=== PATIENT | female | born 1990 | race Caucasian/White ===

== ENCOUNTER 2020-04-15 11:53 | Observation (INO) | payer OTHER, SELFPAY ==
[2020-04-15] VITALS (75 sets, daily range): BP systolic 124–207; BP diastolic 76–132; PULSE 79–116; O2SAT 96–100; BMI 31.6
[2020-04-15 12:56] LABS: Basophils Absolute Auto 0.1 K/mm3 (0.0-0.1); Basophils Percent Auto 0.4 % (0.2-1.2); Eosinophils Absolute Auto 0.1 K/mm3 (0-0.3); Hemoglobin 14.9 g/dL (12.0-15.0); Immature Granulocyte Absolute 0.11 K/mm3 (0.00-0.031); Immature Platelet Fraction Pct 12.4 % (0.9-11.2); Lymphocytes Absolute Auto 1.52 K/mm3 (0.9-3.2); Lymphocytes Percent Auto 13.4 % (18.3-44.2); Mean Corpuscular HGB Conc 33.9 g/dl (32-36); Mean Corpuscular Hemoglobin 27.5 pg (26-34); Mean Corpuscular Volume 81.2 fl (80-100); Mean Platelet Volume 11.7 fl (7.4-10.4); Monocytes Absolute Auto 0.5 K/mm3 (0.1-0.6); Monocytes Percent Auto 4.2 % (2.6-8.5); Neutrophils Absolute Auto 9.1 K/mm3 (1.3-6.7); Platelet Count Result 154 k/mm3 (150-375); Red Blood Count 5.42 M/mm3 (4.2-5.4); Red Cell Distribution Width 14.5 % (11.5-14.5); White Blood Count 11.3 K/mm3 (4.5-10.0)
[2020-04-15 13:00] LABS: Add Urine Microscopic? YES; Appearance Urine Cloudy (Clear); Bacteria Urine Trace /hpf; Bilirubin Urine Negative (Negative); Blood Urine 1+ (Negative); Color Urine Yellow (Yellow); Creatinine Urine 83.6 mg/dL; Glucose Urine UA Negative (Negative); Ketones Urine Negative (Negative); Leukocyte Esterase Ur Trace LEU/UL (NEGATIVE); Mucus Urine Rare /lpf; Nitrate Urine Negative (Negative); Protein Urine 1+ mg/dL (Negative); RBC Urine 0-2 /hpf (0-2); Specific Grav Ur 1.013 (1.001-1.035); Squamous Epithelial Cell Urine Many /hpf (Few); Total Protein Urine Random 29 mg/dL; Ur Ttl Prot Creatinine Ratio 0.35 mg/mg (0-0.20); Urobilinogen Urine Negative mg/dL (<2.0)
[2020-04-15 13:04] LABS: Platelet Clumps Present; Platelet Estimate Adequate (Adequate)
[2020-04-15] MEDS: LABETALOL HCL INJ 100 MG/20 ML VIAL 20 MG IV PUSH (13:10)
--- NOTE | 2020-04-15 13:15 | OBADM ---
This patient, Roxana Ceron, admitted to the OB room OB Post 115 for observation. Patient/family oriented to hospital policies and general routines including ID bracelet, bed and alarms, visiting hours, pain management, procedures, bathroom and other care routines, personal items, smoking policy, room service/diet, and visiting hours. Patient/Family are encouraged to report perceived risks to care and to ask questions if they do not understand what they are told or what they should do.
[2020-04-15] MEDS: LABETALOL HCL INJ 100 MG/20 ML VIAL 40 MG IV PUSH (13:21)
[2020-04-15 13:23] LABS: Alanine Aminotransferase 21 U/L (4-35); Albumin Level 4.2 g/dL (3.5-5.1); Alkaline Phosphatase 82 U/L (38-126); Anion Gap 10 mmol/L (8-16); Aspartate Amino Transferase 24 U/L (14-36); Bilirubin,Total 0.5 mg/dL (0.2-1.3); Blood Urea Nitrogen 7 mg/dL (7-17); Calcium 9.6 mg/dL (8.4-10.2); Carbon Dioxide 21 mmol/L (22-30); Chloride 105 mmol/L (98-107); Estimated CRCL calculation 130 ml/min; Estimated Glomerular Filt Rate > 60; Glucose 102 mg/dL (65-105); Potassium 3.2 mmol/L (3.4-5.0); Sodium 136 mmol/L (137-145)
[2020-04-15] MEDS: LABETALOL HCL INJ 100 MG/20 ML VIAL 80 MG IV PUSH (13:32)
[2020-04-15 14:01] LABS: HIV 1/2 Ab P24 Ag Result Negative (Negative)
[2020-04-15 14:25] LABS: Hepatitis B Surface Antigen Negative (Negative); Rubella IgG Antibody 88.6 IU/ML
[2020-04-15] MEDS: LABETALOL HCL 100 MG TABLET 300 MG PO (16:15)
--- NOTE | 2020-04-15 21:49 | PM.IMHP ---
H&P: HPI History of Present Illness Date/Time: 04/15/20 21:49 The patient is a 30 yo currently 12w3d gestation who presented to the office for a routine visit. Initial BP measurement was 200s/130s. Repeat was 180s/110s and 160s/80s. Patient asymptomatic. Denies any headache, chest pain, SOB, N/V, visual disturbances, or abdominal pain. Patient was sent to L&D for further observation. BP also severely elevated upon arrival to L&D. IV antihypertensives were administered after which BP began to decrease. Decision made to admit patient for prolonged observation to ensure adequate BP control. Chief Complaint: Chronic hypertension Narrative: Roxana Ceron is a 30 year old female Review of Systems Review of Systems: All systems reviewed & are unremarkable except as noted in HPI and below Constitutional: Constitutional: Reports as per HPI, Reports no additional constitutional complaints, Denies chills, Denies fever(s), Denies headache(s) and Denies night sweats Eyes: Eyes: Reports as per HPI and Reports no additional eye complaints ENT: Reports system reviewed and no additional complaints, except as documented, Reports as per HPI, Reports Normal hearing present and Denies headache(s) Cardiovascular: Cardiovascular: Reports as per HPI, Reports no additional cardiovascular complaints, Denies chest pain and Denies dyspnea Respiratory: Respiratory: Reports as per HPI, Reports no additional respiratory complaints, Denies cough and Denies dyspnea Gastrointestinal: Gastrointestinal: Reports as per HPI, Reports no additional gastrointestinal complaints, Denies abdominal pain, Denies change in bowel habits, Denies change in stool character, Denies nausea and Denies vomiting Genitourinary: Genitourinary: Reports no additional female genitourinary complaints, Reports as per HPI, Denies abnormal vaginal bleeding, Denies genital lesions, Denies hot flashes, Denies dyspareunia, Denies pelvic pain, Denies sexual dysfunction, Denies urinary incontinence, Denies vaginal discharge, Denies vaginal dryness and Denies vaginal odor Musculoskeletal: Musculoskeletal: Reports no additional musculoskeletal complaints and Reports as per HPI Integumentary/Breasts: Skin/Breast: Reports system reviewed and no additional complaints, except as docu, Reports as per HPI, Denies breast pain and Denies nipple discharge Neurologic: Reports system reviewed and no additional complaints, except as documented, Reports as per HPI, Reports Normal hearing present and Denies headache(s) Psychiatric: Psychiatric: Reports no additional psychiatric complaints, Reports as per HPI, Denies anxiety and Denies depression Endocrine: Endocrine: Reports no additional endocrine complaints and Reports as per HPI Hematologic/Lymphatic: Hematologic/Lymphatic: Reports no additional hematologic/lymphatic complaints and Reports as per HPI Allergic/Immunologic: Allergic/Immunologic: Reports no additional allergic/immunologic complaints and Reports as per HPI PMFSH Past Medical History Medical History ASCUS favoring benign History of pre-eclampsia in prior , currently History of vaginal delivery x 1 2010 Surgical History Surgical History History of cholecystectomy 2015 Family History Family History Other Breast cancer Grandparent Diabetes mellitus Father Acute myocardial infarction Mother Hypertension Sibling Hypertension Social History Social History Smoking status: Never smoker Alcohol intake: never Substance use: never Meds Home Medications and Allergies Home Medications Medication Instructions Recorded Confirmed Type prenat.vits,uzma,[id number] 1 tablet PO DAILY 03/16/20 04/15/20 History Allergies
[2020-04-16] VITALS (15 sets, daily range): BP systolic 127–154; BP diastolic 87–105; PULSE 75–103; TEMP 36.6–36.9
[2020-04-16] MEDS: LABETALOL HCL 100 MG TABLET 300 MG PO (05:03)
--- NOTE | 2020-04-16 08:55 | PC.NURSE ---
Dr. Weir at bedside discussing plan of care with pt. New orders received to discharge pt home with 300mg Labetalol BID and follow up in the office next week Saturday or Saturday.
--- NOTE | 2020-04-16 09:16 | PM.OBPNVD ---
OB - PN: Subj Subjective Date/time seen: 04/16/20 09:16 Patient doing well this AM. Remains completely asymptomatic. Denies any headache, chest pain, SOB, N/V, visual disturbances, or abdominal pain. BP overnight was 120-150s/80-100s. No further severe BP elevations. Limited sono performed confirming +FHR 140s by M-mode Doppler. movement also visualized. Decision made to discharge patient home in stable condition. Will continue Labetalol 300mg BID. Rx for BP monitor sent to pharmacy. Patient instructed to take her BP at home BID and record measurements in log. Will f/u with patient in 2-3 days. Instructed to schedule an office visit within 1 week for BP check as well as to compare home BP cuff with office cuff. Strict emergency precautions reviewed. Advised to call office immediately for SBP >160 or DBP >110 or for any symptoms. Patient implied an understanding. All questions and concerns addressed. OB - PN: Obj Data Labs CBC & Chem 7: 04/15/20 12:34 04/15/20 12:34 Labs: Laboratory Results - last 24 hr 04/15/20 04/15/20 04/15/20 12:34 12:34 12:34 WBC 11.3 H RBC 5.42 H Hgb 14.9 Hct 44.0 MCV 81.2 MCH 27.5 MCHC 33.9 RDW 14.5 Plt Count 154 MPV 11.7 H Immature Gran % (Auto) 1.0 H Neut % (Auto) 80.0 H Lymph % (Auto) 13.4 L [place] % (Auto) 4.2 Eos % (Auto) 1.0 Baso % (Auto) 0.4 Lymph # (Auto) 1.52 Stanley # (Auto) 0.5 Eos # (Auto) 0.1 Baso # (Auto) 0.1 Abs Immat Gran (auto) 0.11 H Absolute Neuts (auto) 9.1 H Absolute Nucleated RBC 0.0 Nucleated RBC % 0.0 Platelet Estimate Adequate Clumped Platelets Present % Immature Plt Fraction 12.4 H Sodium 136 L Potassium 3.2 L Chloride 105 Carbon Dioxide 21 L Anion Gap 10 BUN 7 Creatinine 0.50 L Estim Creat Clear Calc 130 Estimated GFR > 60 Glucose 102 Uric Acid 4.0 Calcium 9.6 Total Bilirubin 0.5 AST 24 ALT 21 Alkaline Phosphatase 82 Total Protein 8.0 Albumin 4.2 Urine Color Yellow Urine Appearance Cloudy H Urine pH 7.0 Ur Specific [place] 1.013 Urine Protein 1+ H Urine Glucose (UA) Negative Urine Ketones Negative Ur Blood (Man) 1+ H Urine Nitrate Negative Urine Bilirubin Negative Urine Urobilinogen Negative Ur Leukocyte Esterase Trace H Urine RBC 0-2 Urine WBC 4-6 H Ur Squamous Epith Cells Many H Urine Bacteria Trace Urine Mucus Rare U Random Total Protein Urine Creatinine Protein/Creat Ratio 2 Hep Bs Antigen HIV 1&2 Ab/P24 Ag 4thGn Rubella IgG Antibody Blood Type Antibody Screen 04/15/20 04/15/20 04/15/20 12:34 12:34 12:34 WBC RBC Hgb Hct MCV MCH MCHC RDW Plt Count MPV Immature Gran % (Auto) Neut % (Auto) Lymph % (Auto) Stanley % (Auto) Eos % (Auto) Baso % (Auto) Lymph # (Auto) Stanley # (Auto) Eos # (Auto) Baso # (Auto) Abs Immat Gran (auto) Absolute Neuts (auto) Absolute Nucleated RBC Nucleated RBC % Platelet Estimate Clumped Platelets % Immature Plt Fraction Sodium Potassium Chloride Carbon Dioxide Anion Gap BUN Creatinine Estim Creat Clear Calc Estimated GFR Glucose Uric Acid Calcium Total Bilirubin AST ALT Alkaline Phosphatase Total Protein Albumin Urine Color Urine Appearance Urine pH Ur Specific [place] Urine Protein Urine Glucose (UA) Urine Ketones Ur Blood (Man) Urine Nitrate Urine Bilirubin Urine Urobilinogen Ur Leukocyte Esterase Urine RBC Urine WBC Ur Squamous Epith Cells Urine Bacteria Urine Mucus U Random Total Protein 29 Urine Creatinine 83.6 Protein/Creat Ratio 2 0.35 H Hep Bs Antigen Negative HIV 1&2 Ab/P24 Ag 4thGn Negative Rubella IgG Antibody 88.6 Blood Type Antibody Sc
--- NOTE | 2020-04-16 09:41 | PC.NURSE ---
Pt requested to stay until her 24 hour urine is finished[address] Dr. Weir approves of pt waiting to go home until after her 24 hour urine is finished.
[2020-04-16 13:27] LABS: Collection Time Urine 24 HOURS
[2020-04-16 14:05] LABS: Total Volume 24 Hour Urine 800 ml
[2020-04-16 14:11] LABS: Creatinine Clearance Urine 149.7 ml/min (75-125); Creatinine Urine 135.8 mg/dL; Patient Weight 167 Lbs; Total Protein Urine 24 Hr 96 MG/DAY (28-141); Total Protein Urine Random 12 mg/dL
[2020-04-18 11:01] LABS: Rapid Plasma Reagin Non-Reactive (NonReactive)
== END 2020-04-16 12:47 | disposition home or self-care (01) ==
PROVIDERS: Admitting Provider Student in an Organized Health Care Education/Training Program; Visit Provider Student in an Organized Health Care Education/Training Program
DX: O10.911 Unspecified pre-existing hypertension complicating pregnancy, first trimester (principal); Z3A.12 12 weeks gestation of pregnancy
CPT/HCPCS: 36415; 80053; 81001; 81050; 82570; 82575; 84156; 84550; 85025; 85055; 86592; 86703; 86762; 86850; 86900; 86901; 87086; 87340; 96374; A9270; G0378; G0379; G0432

== ENCOUNTER 2020-04-28 07:30 | Outpatient (CLI) | payer OTHER, SELFPAY ==
--- NOTE | ~2020-04-28 | US_ITS ---
EXAMINATION: US retroperitoneal duplex ltd DATE: 04/28/2020 08:12 INDICATION: Hypertension. Atherosclerosis of renal arteries. TECHNIQUE: Multiple grayscale, color Doppler, and pulsed Doppler images of the kidneys and renal lucita alfred were obtained. COMPARISON: None. FINDINGS: The aorta peak systolic velocity is 128 cm/s. The right renal artery peak systolic velocity is 72 cm/ s in the proximal segment, 99 cm/s in the mid segment, and 140 cm/s in the distal segment. The left r enal artery peak systolic velocity is 77 cm/s in the proximal segment, 128 cm/s in the mid segment, a nd 105 cm/s in the distal segment. IMPRESSION: 1. No Doppler evidence of renal artery stenosis. Reviewed, dictated and finalized at location B. EMATICAL STATISTICIAN
== END 2020-04-28 07:31 | disposition home or self-care (01) ==
PROVIDERS: Visit Provider Student in an Organized Health Care Education/Training Program
DX: I70.1 Atherosclerosis of renal artery (principal)
CPT/HCPCS: 93976

== ENCOUNTER 2020-05-11 07:46 | Outpatient (CLI) | payer OTHER, SELFPAY ==
--- NOTE | 2020-05-11 08:10 | ECG_ITS ---
Measurements Intervals [place] Rate: 70 P: 48 MO: 135 QRS: 11 QRSD: 88 T: 17 QT: 389 QTc: 421 Interpretive Statements SINUS RHYTHM WITH SINUS ARRHYTHMIA VOLTAGE CRITERIA FOR LVH BORDERLINE ST ABNORMALITY- ANTEROLAT/INF LEADS BASELINE ARTIFACT- I, III BORDERLINE ECG Electronically Signed On 05-11-2020 8:18:44 CDT by Ricardo Dover D.O.
== END 2020-05-11 07:47 | disposition home or self-care (01) ==
PROVIDERS: Visit Provider Student in an Organized Health Care Education/Training Program
DX: O10.919 Unspecified pre-existing hypertension complicating pregnancy, unspecified trimester (principal); Z3A.00 Weeks of gestation of pregnancy not specified; R94.31 Abnormal electrocardiogram [ECG] [EKG]
CPT/HCPCS: 93005

== ENCOUNTER 2020-06-07 08:17 | Outpatient (CLI) | payer OTHER, SELFPAY ==
--- NOTE | 2020-06-07 08:48 | ECHO_ITS ---
Patient Info Name: Roxana Ceron Age: 30 years : 1990 Gender: Female Ht: 61 in Wt: 160 lbs BSA: 1.79 m2 HR: 65 bpm BP: 141 / 98 mmHg Heart Rhythm: Sinus Rhythm Exam Date: 06/07/2020 9:02 AM Exam Location: [facility] Pulmonary Patient Status: Outpatient Admit Date: 06/07/2020 Staff Ordering Physician: Bonnie Weir MD Labor Conciliator: Olga Lidia Garrido RDCS Attending Provider: Bonnie Weir MD Exam Type: CA echo doppler color flow Study Info Indications O10.019 - Pre-existing essential hypertension complicating , unspecified trimester Complete two-dimensional, color flow and Doppler transthoracic echocardiogram is performed. Summary 1. Complete two-dimensional, color flow and Doppler transthoracic echocardiogram is performed. 2. Normal LV size and wall thickness, normal LV systolic and diastolic function, ejection fraction calculated at 60%. No significant valvular abnormalities. RVSP 30 mmHg. Sinus rhythm/sinus bradycardia during the study. Left Ventricle Left ventricular chamber dimension is normal. Left ventricular systolic function is normal, estimated at 60-65%. There is no increased left ventricular wall thickness. The left ventricular diastolic function is normal. Left Atria Left atrial chamber dimension is normal. Right Atria Right atrial chamber dimension is normal. Aortic Valve The aortic valve is normal. There is no aortic valve stenosis. Pulmonic Valve The pulmonic valve is normal. There is trace pulmonic regurgitation. Mitral Valve The mitral valve has normal leaflets. Tricuspid Valve The tricuspid valve leaflets are normal. There is trace tricuspid valve regurgitation. Pericardium/Pleural The pericardium appears epicardial fat pad. Aorta The aortic root size at the sinus of Valsalva is normal. Left Ventricular Outflow Tract Name Value Normal LVOT 2D LVOT Diameter 1.8 cm LVOT Doppler LVOT Peak Gradient 4 mmHg LVOT Mean Gradient 2 mmHg LVOT VTI 23 cm LVOT VTI/AV VTI Ratio 0.8 LVOT Stroke Volume 62 ml LVOT CO 4.2 l/min LVOT CI 2.4 l/min/m2 Pulmonic Valve Name Value Normal RVOT Doppler RVOT Peak Gradient 1 mmHg PV Doppler PV Peak Gradient 3 mmHg Mitral Valve Name Value Normal MV Doppler MV Peak Gradient 6 m
== END 2020-06-07 08:18 | disposition home or self-care (01) ==
PROVIDERS: Visit Provider Student in an Organized Health Care Education/Training Program
DX: O10.911 Unspecified pre-existing hypertension complicating pregnancy, first trimester (principal); Z3A.13 13 weeks gestation of pregnancy
CPT/HCPCS: 93306

== ENCOUNTER 2020-07-29 07:35 | Outpatient (CLI) | payer OTHER, SELFPAY ==
[2020-07-29 09:18] LABS: Glucose 1 Hour PP 50gm Dose 99 mg/dL
[2020-07-29 09:24] LABS: Basophils Absolute Auto 0.1 K/mm3 (0.0-0.1); Basophils Percent Auto 0.5 % (0.2-1.2); Eosinophils Absolute Auto 0.2 K/mm3 (0-0.3); Hematocrit 39.8 % (37.0-47.0); Immature Granulocyte Absolute 0.18 K/mm3 (0.00-0.031); Immature Granulocyte Percent A 1.6 % (0-0.5); Lymphocytes Percent Auto 12.1 % (18.3-44.2); Mean Corpuscular HGB Conc 32.7 g/dl (32-36); Mean Corpuscular Hemoglobin 28.1 pg (26-34); Mean Platelet Volume 10.8 fl (7.4-10.4); Monocytes Absolute Auto 0.6 K/mm3 (0.1-0.6); Monocytes Percent Auto 5.5 % (2.6-8.5); Neutrophils Percent Auto 78.3 % (45.5-73.1); Platelet Count Result 241 k/mm3 (150-375); Red Blood Count 4.63 M/mm3 (4.2-5.4); White Blood Count 11.5 K/mm3 (4.5-10.0)
[2020-07-29 09:42] LABS: Vitamin D 25 Hydroxy 20.7 ng/mL
[2020-07-29 10:14] LABS: Hepatitis C Virus Antibody Negative (Negative)
== END 2020-07-29 07:36 | disposition home or self-care (01) ==
PROVIDERS: Visit Provider Student in an Organized Health Care Education/Training Program
DX: O09.92 Supervision of high risk pregnancy, unspecified, second trimester (principal); Z3A.00 Weeks of gestation of pregnancy not specified
CPT/HCPCS: 36415; 82306; 82947; 84443; 85025; 86787; 86803

== ENCOUNTER 2020-08-15 13:54 | Outpatient (CLI) | payer OTHER, SELFPAY ==
[2020-08-15 14:30] VITALS: BP 121/82; PULSE 83
[2020-08-15 14:45] VITALS: BP 126/85; PULSE 81
[2020-08-15 15:15] VITALS: BP 125/88; PULSE 79
[2020-08-15 15:23] LABS: Basophils Absolute Auto 0.1 K/mm3 (0.0-0.1); Basophils Percent Auto 0.5 % (0.2-1.2); Eosinophils Absolute Auto 0.1 K/mm3 (0-0.3); Hemoglobin 13.5 g/dL (12.0-15.0); Immature Granulocyte Percent A 1.6 % (0-0.5); Lymphocytes Absolute Auto 1.46 K/mm3 (0.9-3.2); Lymphocytes Percent Auto 11.4 % (18.3-44.2); Mean Corpuscular HGB Conc 32.9 g/dl (32-36); Mean Corpuscular Hemoglobin 28.4 pg (26-34); Mean Corpuscular Volume 86.3 fl (80-100); Mean Platelet Volume 10.8 fl (7.4-10.4); Monocytes Absolute Auto 0.7 K/mm3 (0.1-0.6); Monocytes Percent Auto 5.5 % (2.6-8.5); Neutrophils Absolute Auto 10.2 K/mm3 (1.3-6.7); Platelet Count Result 216 k/mm3 (150-375); Red Blood Count 4.75 M/mm3 (4.2-5.4); Red Cell Distribution Width 13.6 % (11.5-14.5); White Blood Count 12.8 K/mm3 (4.5-10.0)
[2020-08-15 15:30] VITALS: BP 125/85; PULSE 79
[2020-08-15 15:32] LABS: Creatinine Urine 269.2 mg/dL; Total Protein Urine Random 65 mg/dL; Ur Ttl Prot Creatinine Ratio 0.24 mg/mg (0-0.20)
[2020-08-15 15:34] LABS: Alanine Aminotransferase 21 U/L (4-35); Albumin Level 4.3 g/dL (3.5-5.1); Alkaline Phosphatase 260 U/L (38-126); Anion Gap 11 mmol/L (8-16); Aspartate Amino Transferase 22 U/L (14-36); Bilirubin,Total 0.2 mg/dL (0.2-1.3); Blood Urea Nitrogen 12 mg/dL (7-17); Calcium 10.5 mg/dL (8.4-10.2); Carbon Dioxide 20 mmol/L (22-30); Chloride 105 mmol/L (98-107); Estimated Glomerular Filt Rate > 60; Glucose 105 mg/dL (65-105); Potassium 4.1 mmol/L (3.4-5.0); Sodium 136 mmol/L (137-145); Uric Acid 6.8 mg/dL (2.5-7.5)
[2020-08-15 15:38] LABS: Add Urine Microscopic? YES; Amorphous Sediment Urine Few; Appearance Urine Cloudy (Clear); Bacteria Urine Trace /hpf; Bilirubin Urine Negative (Negative); Blood Urine 1+ (Negative); Color Urine Amber (Yellow); Glucose Urine UA Negative (Negative); Ketones Urine Negative (Negative); Leukocyte Esterase Ur 2+ LEU/UL (NEGATIVE); Mucus Urine Few /lpf; Nitrate Urine Negative (Negative); Protein Urine 2+ mg/dL (Negative); Specific Grav Ur 1.024 (1.001-1.035); Squamous Epithelial Cell Urine Many /hpf (Few); Urobilinogen Urine Negative mg/dL (<2.0)
[2020-08-15 15:45] VITALS: BP 128/90; PULSE 78
[2020-08-15 16:00] VITALS: BP 122/84; PULSE 81
== END 2020-08-15 15:05 | disposition home or self-care (01) ==
LOC: ANHOBOP 13:59 → ANHLDR 14:01
PROVIDERS: Visit Provider Student in an Organized Health Care Education/Training Program
DX: O13.9 Gestational [pregnancy-induced] hypertension without significant proteinuria, unspecified trimester (principal); Z3A.00 Weeks of gestation of pregnancy not specified
CPT/HCPCS: 36415; 59025; 80053; 81001; 82570; 84156; 84550; 85025; 87086; 99199

== ENCOUNTER 2022-10-12 09:17 | Emergency (ER) | payer SELFPAY ==
[2022-10-12] VITALS (10 sets, daily range): BP systolic 110–132; BP diastolic 72–92; PULSE 84–97; RESP 10–97; TEMP 36.3; O2SAT 17–100
--- NOTE | 2022-10-12 09:37 | ECG_ITS ---
Measurements Intervals [place] Rate: 91 P: 46 NC: 148 QRS: -1 QRSD: 99 T: 231 QT: 381 QTc: 469 Interpretive Statements SINUS RHYTHM LEFT VENTRICULAR HYPERTROPHY AND ST-T CHANGE [VOLTAGE CRITERIA PLUS ST/T ABNORMALITY] ABNORMAL ECG COMPARED TO ECG 05/11/2020 08:17:27 NO SIGNIFICANT CHANGE Electronically Signed On 10-12-2022 15:59:55 CDT by Jovi Knapp M.D.
--- NOTE | 2022-10-12 09:57 | ED.NAVMDI ---
HPI - Nausea/Vomiting/Diarrhea General Chief complaint: Nausea/Vomiting/Diarrhea Stated complaint: heavy feeling in chest - i feel dehydrated Time Seen by Provider: 10/12/22 09:24 Source: patient, RN notes reviewed and old records reviewed Mode of arrival: ambulatory Limitations: no limitations History of Present Illness HPI Narrative: This is a 32 year old female who presents for evaluation of nausea, vomiting and diarrhea. Patient reports she developed nausea and vomiting on Saturday morning. She reports initially she had nonbilious emesis with food from Saturday night. She has continued to have nausea and dry heaves. She also reports watery diarrhea and her last episode was yesterday evening. She took Pepto Bismol yesterday afternoon. She denies abdominal pain, fever, or chills. She reports feeling dizzy with standing today and she reports her blood pressure was 90/63. She denies any sick contacts. She reports feeling upper chest heaviness this morning starting at 7 am and it has been constant, nonradiating. Related Data Home Medications Medication Instructions Recorded Confirmed prenat.vits,uzma,[id number] 1 tablet PO DAILY 03/16/20 04/15/20 Allergies Allergy/AdvReac Type Severity Reaction Status Date / Time morphine Allergy Itching Verified 10/12/22 09:18 Review of Systems Constitutional: Constitutional: Denies weakness Cardiovascular: Cardiovascular: Reports chest pain, Denies syncope, Denies rapid heart rate, Denies irregular heart rhythm, Denies leg edema and Denies dyspnea Respiratory: Respiratory: Denies chest congestion, Denies hemoptysis, Denies excessive phlegm production and Denies dyspnea Gastrointestinal: Gastrointestinal: Denies abdominal pain, Denies hematochezia, Reports diarrhea, Reports nausea and Reports vomiting Genitourinary: Genitourinary: Denies hematuria and Denies dysuria Musculoskeletal: Musculoskeletal: Denies joint swelling, Denies loss of height and Denies muscle weakness Neurologic: Reports dizziness, Denies syncope, Denies focal weakness and Denies weakness [facility] Past Medical History Medical History (Updated 10/12/22 @ 13:47 by Evie Kemp MD) ASCUS favoring benign History of pre-eclampsia in prior , currently History of vaginal delivery x 1 2011 Surgical History Surgical History (Updated 10/12/22 @ 09:58 by Evie Kemp MD) H/O section History of cholecystectomy 2016 Family History Family History Other Breast cancer Grandparent Diabetes mellitus Father Acute myocardial infarction Mother Hypertension Sibling Hypertension Social History Social History Smoking status: Never smoker Alcohol intake: never Substance use: never Exam Const: General: no acute distress and alert Nutritional Appearance: well nourished Orientation/consciousness: patient oriented x3 Limitations: no limitations HENMT: Head: normal to inspection Eyes: EOM: EOMs intact bilaterally Neck: Neck: normal visual inspection Chest: Chest palpation & inspection: normal inspection of the chest Resp: Effort & Inspection: normal respiratory effort Auscultation: clear to auscultation bilaterally Cardio: Rate: regular rate Rhythm: regular rhythm Heart sounds: no murmurs GI: GI Palp: Yes Soft to palpation, No Tenderness to palpation present (GI), No Guarding due to palpation present (GI) and No Rigid due to palpation Auscultation: normal bowel sounds Skin: General skin exam: normal color Rashes: no rashes Wounds: no wounds Neuro: General: patient oriented x3, moves all extremities and CN's II-XI intact bilaterally Extrem: General: normal to inspection Psych: Mental Status: mental status grossly normal Affect: normal affect Attitude: cooperative Course Reevaluation(s) Reevaluation #1: PAtien
[2022-10-12] MEDS: ONDANSETRON INJ 4 MG/2 ML VIAL IV PUSH (09:58)
[2022-10-12] MEDS: SODIUM CHLORIDE 0.9% IV 1,000 ML 999 ML IV CONT (09:58)
[2022-10-12 10:02] LABS: Basophils Absolute Auto 0.1 K/mm3 (0.0-0.1); Basophils Percent Auto 0.4 % (0.2-1.2); Eosinophils Absolute Auto 0.1 K/mm3 (0-0.3); Eosinophils Percent Auto 0.5 % (0-4.4); Hematocrit 43.1 % (37.0-47.0); Hemoglobin 13.7 g/dL (12.0-15.0); Immature Granulocyte Absolute 0.08 K/mm3 (0.00-0.031); Immature Granulocyte Percent A 0.6 % (0-0.5); Lymphocytes Absolute Auto 0.53 K/mm3 (0.9-3.2); Lymphocytes Percent Auto 4.1 % (18.3-44.2); Mean Corpuscular HGB Conc 31.8 g/dl (32-36); Mean Corpuscular Hemoglobin 25.8 pg (26-34); Mean Corpuscular Volume 81.3 fl (80-100); Mean Platelet Volume 10.5 fl (7.4-10.4); Monocytes Absolute Auto 0.6 K/mm3 (0.1-0.6); Monocytes Percent Auto 4.2 % (2.6-8.5); Neutrophils Absolute Auto 11.8 K/mm3 (1.3-6.7); Neutrophils Percent Auto 90.2 % (45.5-73.1); Platelet Count Result 261 k/mm3 (150-375); Red Cell Distribution Width 15.9 % (11.5-14.5); White Blood Count 13.1 K/mm3 (4.5-10.0)
[2022-10-12 10:13] LABS: Alkaline Phosphatase 74 U/L (38-126); Anion Gap 15 mmol/L (8-16); Aspartate Amino Transferase 32 U/L (14-36); Bilirubin,Total 0.6 mg/dL (0.2-1.3); Blood Urea Nitrogen 15 mg/dL (7-17); Carbon Dioxide 21 mmol/L (22-30); Chloride 102 mmol/L (98-107); Estimated CRCL calculation 78 ml/min; Estimated Glomerular Filt Rate > 60; Glucose 152 mg/dL (65-110); Lipase 90 U/L (23-300); Potassium 3.5 mmol/L (3.4-5.0); Sodium 138 mmol/L (137-145)
[2022-10-12 10:21] LABS: Appearance Urine Cloudy (Clear); Bacteria Urine 4+ /hpf; Bilirubin Urine 1+ (Negative); Blood Urine Negative (Negative); Calcium Oxalate Crystals Urine Present /hpf; Color Urine Dark Yellow (Yellow); Glucose Urine UA Negative (Negative); Ketones Urine Trace mg/dL (Negative); Leukocyte Esterase Ur 1+ LEU/UL (Negative); Mucus Urine Present /lpf; Nitrate Urine Negative (Negative); Protein Urine 1+ mg/dL (Negative); Specific Grav Ur 1.032 (1.001-1.035); Squamous Epithelial Cell Urine Many /hpf (Few); WBC Urine 21-50 /hpf
[2022-10-12 10:22] LABS: Alanine Aminotransferase 55 U/L (6-35)
[2022-10-12 10:23] LABS: Add Urine Microscopic? YES
[2022-10-12 11:23] LABS: Troponin I < 0.012 ng/mL (0.000-0.034)
[2022-10-12 12:01] LABS: Influenza A QL RT-PCR Negative (Negative); Influenza B QL RT-PCR Negative (Negative); SARS-CoV-2 RNA PCR Negative (Negative)
== END 2022-10-12 14:00 | disposition home or self-care (01) ==
PROVIDERS: Emergency Provider General Practice; PCP Physician Assistant
DX: K52.9 Noninfective gastroenteritis and colitis, unspecified (principal); E86.0 Dehydration; Z20.822 Contact with and (suspected) exposure to COVID-19; Z90.49 Acquired absence of other specified parts of digestive tract; I51.7 Cardiomegaly
CPT/HCPCS: 36415; 80053; 81001; 81025; 83690; 84484; 85025; 87086; 87088; 87636; 93005; 96361; 96374; 99284; J2405; J7030

== ENCOUNTER 2023-10-11 11:17 | Outpatient (CLI) | payer BC, SELFPAY ==
--- NOTE | ~2023-10-11 | US_ITS ---
EXAMINATION: US OB <= 14 weeks fetus DATE: 10/11/2023 11:44 INDICATION: Confirmation of viability during first trimester TECHNIQUE: Real-time pelvic ultrasound utilizing transabdominal probe was performed. The ashley beaulieu radiologist was not present for the study. COMPARISON: None. FINDINGS: The uterus measures 1.9 x 5.8 x 7.5 cm. There is an intrauterine gestational sac. A single dave e is identified. The crown rump length measures 2.4 cm, which correlates with an estimated gestationa l age of 9 weeks and 1 days. heart motion is identified measuring 163 beats per minute (bpm) by M-mode Doppler.9 x 7 x 3 mm subchorionic hematoma along the left anterior margin of the gestational sac. The bilateral ovaries are not visualized. There is no free fluid in the pelvis. IMPRESSION: 1. Single living fetus with heart rate of 163 bpm. 2. Gestational age by ultrasound of 9 weeks 1 day(s) +/- 6 day(s) with ultrasound estimated date of delivery (ABRAHAM) of 05/14/2024. Reviewed, dictated and finalized at location A. IMPRESSION: 1. Single living fetus with heart rate of 163 bpm. 2. Gestational age by ultrasound of 9 weeks 1 day(s) +/- 6 day(s) with ultraso und estimated date of delivery (ABRAHAM) of 05/14/2024.
== END 2023-10-11 11:18 ==
PROVIDERS: PCP Advanced Practice Midwife; Visit Provider Advanced Practice Midwife
DX: O36.80X0 Pregnancy with inconclusive fetal viability, not applicable or unspecified (principal)
CPT/HCPCS: 76801

== ENCOUNTER 2023-11-13 11:10 | Outpatient (CLI) | payer BC, SELFPAY ==
--- NOTE | ~2023-11-13 | US_ITS ---
EXAMINATION: US OB <= 14 weeks fetus DATE: 11/13/2023 12:18 INDICATION: Spotting in . TECHNIQUE: Real-time transabdominal pelvic ultrasound was performed. COMPARISON: Ultrasound 10/11/2023 FINDINGS: The uterus measures 15.8 x 7.4 cm. There is an intrauterine gestational sac. The crown rump jeffrey gth measures 7.7 cm, which correlates with an estimated gestational age of 13 weeks and 6 day(s) (+/- ) 1 week(s) and 2 day(s). heart motion is identified measuring 150 beats per minute (bpm) by M- mode Doppler. The cervical length is 3.9 cm on transabdominal images, which is normal. The ovaries ar e not visualized. There is no free fluid in the pelvis. IMPRESSION: 1. Single living intrauterine gestation with estimated date of delivery of 05/14/24 based on the ultr asound from 10/11/2023. Reviewed, dictated and finalized at location A. IMPRESSION: 1. Single living intrauterine gestation with estimated date of delivery of 04/26 based on the ultrasound from 10/11/2023.
== END 2023-11-13 11:11 | disposition home or self-care (01) ==
LOC: ANHLAB 11:21
PROVIDERS: PCP Advanced Practice Midwife; Visit Provider Obstetrics & Gynecology Gynecology
DX: O26.852 Spotting complicating pregnancy, second trimester (principal); Z3A.00 Weeks of gestation of pregnancy not specified
CPT/HCPCS: 36415; 76801; 86850; 86900; 86901

== ENCOUNTER 2024-03-14 05:13 | Observation (INO) | payer BC, SELFPAY ==
[2024-03-14] VITALS (182 sets, daily range): BP systolic 117–186; BP diastolic 77–119; PULSE 61–107; RESP 16–18; TEMP 36.4–37.3; O2SAT 90–100; BMI 32.9
--- NOTE | 2024-03-14 05:13 | OBADM ---
This patient, Roxana Ceron, admitted to the OB room OB Post 117 for observation. Patient/family oriented to hospital policies and general routines including ID bracelet, bed and alarms, visiting hours, pain management, procedures, bathroom and other care routines, personal items, smoking policy, room service/diet, and visiting hours. Patient/Family are encouraged to report perceived risks to care and to ask questions if they do not understand what they are told or what they should do.
[2024-03-14] MEDS: DEXTROSE 5%/LACTATED RINGERS 1,000 ML 125 ML IV CONT (05:46)
[2024-03-14] MEDS: ONDANSETRON INJ 4 MG/2 ML VIAL IV PUSH (05:47)
[2024-03-14] MEDS: LABETALOL HCL INJ 100 MG/20 ML VIAL 20 MG IV PUSH (05:56)
[2024-03-14] MEDS: LABETALOL HCL INJ 100 MG/20 ML VIAL 40 MG IV PUSH (06:12)
[2024-03-14 06:28] LABS: Basophils Percent Auto 0.5 % (0.2-1.2); Eosinophils Percent Auto 0.3 % (0-4.4); Hematocrit 34.3 % (37.0-47.0); Hemoglobin 11.3 g/dL (12.0-15.0); Immature Granulocyte Percent A 2.3 % (0-0.5); Lymphocytes Absolute Auto 0.71 K/mm3 (0.9-3.2); Mean Corpuscular HGB Conc 32.9 g/dl (32-36); Mean Corpuscular Hemoglobin 25.7 pg (26-34); Mean Corpuscular Volume 78.1 fl (80-100); Mean Platelet Volume 10.3 fl (7.4-10.4); Monocytes Absolute Auto 0.6 K/mm3 (0.1-0.6); Monocytes Percent Auto 6.6 % (2.6-8.5); Neutrophils Absolute Auto 7.3 K/mm3 (1.3-6.7); Neutrophils Percent Auto 82.3 % (45.5-73.1); Platelet Count Result 218 k/mm3 (150-375); Red Blood Count 4.39 M/mm3 (4.2-5.4); Red Cell Distribution Width 14.1 % (11.5-14.5); White Blood Count 8.9 K/mm3 (4.5-10.0)
[2024-03-14 06:38] LABS: Alanine Aminotransferase 13 U/L (6-35); Albumin Level 3.3 g/dL (3.5-5.1); Alkaline Phosphatase 256 U/L (38-126); Anion Gap 9 mmol/L (4-12); Aspartate Amino Transferase 20 U/L (14-36); Bilirubin,Total 0.5 mg/dL (0.2-1.3); Blood Urea Nitrogen 12 mg/dL (7-17); Calcium 8.4 mg/dL (8.4-10.2); Carbon Dioxide 20 mmol/L (22-30); Chloride 103 mmol/L (98-107); Estimated CRCL calculation 126 ml/min; Estimated Glomerular Filt Rate > 60; Glucose 124 mg/dL (65-110); Potassium 2.9 mmol/L (3.4-5.0); Sodium 132 mmol/L (137-145)
--- NOTE | 2024-03-14 07:11 | PC.NURSE ---
Dr. Peng informed of lab results including K+ of 2.9. Pt has been unable to void yet. IV rate was initially 125ml/hr due to severe hypertension. BP now in 130's / 80's after a total of Labetalol 60 mg given IV. IV rate was increased to 200 ml/hr. Orders received for KCl and to keep IV at 200ml/hr.
[2024-03-14] MEDS: POTASSIUM CHLORIDE INJ 40 MEQ in SODIUM CHLORIDE 0.9% IV 500 ML 130 MEQ IVPB (08:06)
[2024-03-14 08:43] LABS: Add Urine Microscopic? YES; Appearance Urine Cloudy (Clear); Bacteria Urine 1+ /hpf; Bilirubin Urine Negative (Negative); Blood Urine Negative (Negative); Color Urine Dark Yellow (Yellow); Glucose Urine UA Negative (Negative); Ketones Urine 3+ mg/dL (Negative); Leukocyte Esterase Ur Negative LEU/UL (Negative); Nitrate Urine Negative (Negative); Non Pathogenic Casts 0-2; Protein Urine 1+ mg/dL (Negative); RBC Urine 0-2 /hpf (0-2); Specific Grav Ur 1.028 (1.001-1.035); Squamous Epithelial Cell Urine Few /hpf (Few); WBC Urine 0-5 /hpf (0-3)
--- NOTE | 2024-03-14 09:11 | PC.NURSE ---
Dr. Peng on unit and updated on increasing BP's and pt c/o heartburn. Orders received.
[2024-03-14 09:18] LABS: Creatinine Urine 250.3 mg/dL; Total Protein Urine Random 27 mg/dL; Ur Ttl Prot Creatinine Ratio 0.11 mg/mg (0-0.20)
[2024-03-14] MEDS: FAMOTIDINE 20 MG/2 ML VIAL IV PUSH (09:20)
[2024-03-14] MEDS: LABETALOL HCL 100 MG TABLET 200 MG PO ×2 (09:21→18:18)
--- NOTE | 2024-03-14 09:21 | PC.NURSE ---
Pt's nausea has resolved and pt has had some jello. Labetalol given with sips of water. Pt instructed that she can have sips of water, jello, popcicle, and crackers for the next hour. Want to make sure her Labetalol stays down. Pt verbalizes understanding.
--- NOTE | 2024-03-14 09:22 | PC.NURSE ---
Dr. Peng in to see pt and discuss plan of care. MD has reviewed monitor tracing. OK to discontinue continuous monitoring and do NST q8hr.
--- NOTE | 2024-03-14 10:19 | WPDOBADMIT ---
Obstetrics - Admit Note Admission Note: record reviewed. Pertinent additions to the history and/or any subsequent changes in the physical findings that are not consistent with the expected course of the were found. Additions to the history and/or subsequent changes in the physical findings follow. Patient called with 2 d N/V. Recommended to go to L&D. Due to her N/V has not been able to keep her labetalol po down. On arrival BP 186/116. IV started and IV labetalol protocol started. Two doses required to bring BP down. IV fluids started and zofran. Due to GERD also given pepcid. After IV fluids, when able to finally give urine, +3 ketones. PIH labs done and elevated uric acid and K+2.9. K rider ordered and once tolerating po will give po K+ also. Patient feeling better and just gave po labetalol. Continue IV fluids and close monitoring.
--- NOTE | 2024-03-14 10:20 | PC.NURSE ---
No further nausea. Heartburn has resolved. Pt given a pitcher of water and cesar crackers and encouraged to try drinking. Menu given for pt to order food.
[2024-03-14] MEDS: POTASSIUM CHLORIDE 20 MEQ ER TABLET 40 MEQ PO (12:08)
--- NOTE | 2024-03-14 12:08 | PC.NURSE ---
Pt's urine still qasim in color. Pt hadn't ordered food yet. Guille crackers have stayed down without any return of nausea. Pt encouraged to order lunch. Declines anything from patient kitchen. Told pt it's OK if she doesn't feel like a meal, but needs to do small nibbles and drink frequently. Pt verbalizes understanding.
[2024-03-14] MEDS: DEXTROSE 5%/LACTATED RINGERS 1,000 ML 200 ML IV CONT (12:30)
[2024-03-14] MEDS: ACETAMINOPHEN 500 MG TABLET 1000 MG PO (13:49)
--- NOTE | 2024-03-14 15:10 | PC.NURSE ---
Pt has had a nap. No additional void yet. Pt instructed to call when she does. No nausea. Declines anything else from the kitchen. Pt does have Gatorade she is sipping on.
--- NOTE | 2024-03-14 16:27 | PC.NURSE ---
Dr. Peng informed pt is feeling much better and asking about going home. Updated MD on PO intake for the day and BP's. No nausea or emesis. Oral KCL was given at 1208. Order received to repeat K+ and if 3.5 or higher may discharge pt to home with RX for Zofran ODT.
[2024-03-14 16:49] LABS: Potassium 3.6 mmol/L (3.4-5.0)
--- NOTE | 2024-03-14 18:06 | PC.NURSE ---
Dr. Peng informed of increase in BP's since 1700- 150/94, 159/102, and now 159/105. Pt states she normally takes her Labetalol at 0900 and 2100. Order received to give another dose now and then change frequency to q 8 hr. Continue to monitor BP's and call with update.
--- NOTE | 2024-03-14 20:09 | PC.NURSE ---
[address] markham tolerating foods, fluids, voiding, an PO medications. no symptoms on N/V. To continue to monitor BP at home as needed. pt requesting to go home, Dr rai with Dc pt.
--- NOTE | 2024-03-14 20:30 | PC.NURSE ---
2021 pt IV dc'ed discharge instructions given.
--- NOTE | 2024-03-16 08:02 | P.PNOB_ITS ---
OB - Triage/Final Diagnosis Visit Information Reason for evaluation: other (Viral gastroenteritis with dehydration; chronic hy pertension) Comments/Additional reasons for admission: I have assessed the risk for this patient, Roxana Ceron, and determined that she would benefit from observation care. Evaluation Laboratory results: Laboratory Tests 03/14/24 03/14/24 03/14/24 06:09 08:26 16:38 WBC 8.9 RBC 4.39 Hgb 11.3 L Hct 34.3 L MCV 78.1 L MCH 25.7 L MCHC 32.9 RDW 14.1 Plt Count 218 MPV 10.3 Immature Gran % (Auto) 2.3 H Neut % (Auto) 82.3 H Lymph % (Auto) 8.0 L [place] % (Auto) 6.6 Eos % (Auto) 0.3 Baso % (Auto) 0.5 Lymph # (Auto) 0.71 L [place] # (Auto) 0.6 Eos # (Auto) 0.0 Baso # (Auto) 0.0 Abs Immat Gran (auto) 0.20 H Absolute Neuts (auto) 7.3 H Absolute Nucleated RBC 0.000 Nucleated RBC % 0.0 Sodium 132 L Potassium 2.9 L 3.6 Chloride 103 Carbon Dioxide 20 L Anion Gap 9 BUN 12 Creatinine 0.51 L Estim Creat Clear Calc 126 Estimated GFR > 60 Glucose 124 H Uric Acid 8.0 H Calcium 8.4 Total Bilirubin 0.5 AST 20 ALT 13 Alkaline Phosphatase 256 H Total Protein 6.0 L Albumin 3.3 L Urine Color Dark yellow Urine Appearance Cloudy H Urine pH 6.0 Ur Specific [place] 1.028 Urine Protein 1+ H Urine Glucose (UA) Negative Urine Ketones 3+ H Ur Blood (Man) Negative Urine Nitrate Negative Urine Bilirubin Negative Urine Urobilinogen 1.0 Leukocyte Esterase Rfl Negative Urine RBC 0-2 Urine WBC 0-5 Ur Squamous Epith Cells Few Urine Bacteria 1+ H Urine Casts 0-2 U Random Total Protein 27 Urine Creatinine 250.3 Protein/Creat Ratio 2 0.11
--- OUTSIDE RECORDS SUMMARY | 2024-03-19 08:24 | XMS_ITS | Clinical Summary ---
Author Organization [facility] Address [address] [place] [phone] Phone Care Team Providers Care County Director Welfare Name Role Phone Unavailable Primary Care Provider Unavailabl e Allergies Active Allergy Reactions Criticality Noted Date Comments Morphine Other (See Comments) Low 08/20/2020 Arm with IV turned red with administration Medications vit-iron fumarate-fa (RENÉ ) 28 mg iron- 800 mcg Tablet Take 1 Tablet by mouth daily. Active aspirin (RAJ CHEWABLE) 81 mg Tablet, Chewable Take 81 mg by mouth daily. Active NIFEdipine (PROCARDIA XL) 60 mg Extended Release 24 hour tablet Take 1 Tablet (60 mg) by mouth daily. 30 Tablet 08/24/2020 5:44 PM CDT 08/24/2020 Active Active Problems Problem Noted Date Diagnosed Date S/P section 08/20/2020 Abnormal test 08/19/2020 MFM CHTN, AEDF 08/04/2020 High-risk , second trimester 07/07/2020 History of pre-eclampsia 07/07/2020 History of delivery 07/07/2020 MFM/HOSP: cHTN; AEDF; PLTCS 08/19; Boy (NICU) Overview (06/09/2020): MFM consult with MS 06/09/20 Baseline PEC labs (04/15/20): H/H 14.9/44 Plt 154 Cr 0.5 AST/ALT 24 hour urine: 96mg Work Up: 04/28/20 Normal retroperitoneal u/s 05/11/20 EKG: SR with sinus arrythmia and LVH 06/07/20: Normal maternal ECHO per patient report- will contact Dr. Weir's office for fax of report Current (06/09/20) medications (started by primary ob): Labetalol 300mg TID, Procardia 60mg XL, LDA Plan: - continue Labetalol 300mg TID and Procardia 60mg XL - Continue low dose aspirin - echo ordered by primary Ob- will follow up - patient to check BP TID at home - call for persistent BP >150/100 - q 4 week growth ultrasounds - Twice weekly NSTs at 32 weeks - Delivery timing to be determined as the progresses Encounters Date Type Department Care Team Description 03/05/2024 12:59 PM [facility] - 03/05/2024 11:59 PM [facility] Hospital Encounter [facility] Thuy Perez [address] [place] [phone] Blane Mena MD Discharge Disposition: Home or Self Care 02/06/2024 2:00 PM [facility] - 02/06/2024 11:59 PM [facility] Hospital Encounter [facility] Thuy Perez [address] [place] [phone] Nida Turner MD Discharge Disposition: Home or Self Care 01/14/2024 External Device Data [facility] ABSTRACTION Provider, Abstract 01/09/2024 1:56 PM [facility] - 01/09/2024 11:59 PM [facility] Hospital Encounter [facility] Thuy Perez [address] [place] [phone] Yaa Peng MD Discharge Disposition: Home or Self Care from Last 3 Months Immunizations Immunization Administration Dates Next Due (ADACEL/BOOSTRIX)(10 YR UP) TDAP VACCINE, 0.5ML, IM 08/19/2020 Family History Medical History Relation Name Comments Hypertension Brother Other Father Myocardial Infa rction Diabetes Maternal Grandmother Hypertension Mother Relation Name Status Comments Brother Father Maternal Grandmother Mother Social History Tobacco Use Types Packs/Day Years Used Date Smoking Tobacco: Never Smokeless Tobacco: Never Alcohol Use Standard Drinks/Week Comments Not Currently 0 (1 standard drink = 0.6 oz pur e alcohol) Comments No Sex and Gender Information Value Date Recorded Sex Assigned at Not on file Legal Sex Female 2:25 PM CDT Gender Identity Not on file Sexual Orientation Not on file Last Filed Vital Signs Vital Sign Reading Time Taken Comments Blood Pressure 121/85 08/24/2020 5:29 PM CDT Pulse 88 08/24/2020 3:59 PM CDT Temperature 36.6 ??C (97.9 ??F) 08/24/2020 8:20 AM CD T Respiratory Rate 16 08/24/2020 8:20 AM CDT Oxygen Saturation 99% 08/24/2020 8:20 AM CDT Inhaled Oxygen Concentration - - Weight 76.4 kg (168 lb 8 oz) 08/19/2020 8:52 AM CDT Height 154.9 cm (5' 1 ) 08/19/2020 8:52 AM CDT Body Mass Index 31.84 08/19/2020 8:52 AM CDT Plan of Treatment Health Maintenance Due Date Last Done Comments HEPATITIS B VACCINES (1 of 3 - 19+ 3-dose series) 2011 CERVICAL CANCER SCREENING 2022 INFLUENZA VACCINE (#1) 2023 12/24/2022 Preventative Visit- Commercial 02/26/2024 DTAP/TDAP/TD VACCINES (2 - T d or Tdap) 08/19/2030 08/19/2020 HPV VACCINES Aged Out No longer eligi ble based on patient's age to complete this topic Procedures Procedure Name Priority Date/Time Associated Diagnosis Comments US OB FOLLOW UP PER FETUS Routine 03/05/2024 5:00 PM [facility] History of prior with IUGR Chronic hypertension in US OB FOLLOW UP PER FETUS Routine 02/06/2024 2:36 PM [facility] Chronic hypertension in History of delivery, currently US OB DETAIL SINGLE GEST Routine 01/09/2024 3:09 PM [facility] screening for malformation using ultrasonics Chronic hypertension affecting from Last 3 Months Results * US OB FOLLOW UP PER FETUS (03/05/2024 5:00 PM [facility]) Only the most recent of2 resultswithin the time period is included. Anatomical Region Laterality Modality Pelvis Ultrasound 03/05/2024 1:00 PM [facility] Narrative 03/05/2024 1:39 PM [facility] STL FOLLOW UP ----- Pat. Name: ROXANA ROSEN Study Date: 03/05/2024 1:00pm Pat. NO: [id number] Referring ??MD: YAA PENG MD Site: [facility] Hand: Nickie Barr RDMS : 1990 Age: 34 ----- INDICATION ----- Screening Follow-Up Chronic Hypertension (HTN) History of PTL/PTD in Previous , Currently Maternal Care for Low Transverse Scar from Previous Delivery (Previous ) CODING ----- Diagnoses ? Z3A.30: Weeks of gestation ?O34.211: Maternal care for low transverse scar from previous delivery ?O09.213: Supervision of with history of pre-term labor ?O10.013: Pre-existing essential hypertension complicating ?Z36.3: Encounter for screening for malformations Procedures ?37934: Ultrasound, uterus, real time with image documentation, follow up, transabdominal ?approach per fetus HISTORY ----- OB History ? 3. Para 2 ?T1P1L2 MATERNAL ASSESSMENT ----- Physical Exam ? Initial weight 73 kg, 160 lb. Initial BMI 30.25 kg/m?? METHOD ----- Transabdominal ultrasound examination ----- Johnson . Number of fetuses: 1 DATING ----- GA by prior assessment 30 w + 0 d ABRAHAM by prior assessment: 05/14/2024 Ultrasound examination on: 03/05/2024 GA by U/S based upon: AC, BPD, EFW, Femur, HC GA by U/S 29 w + 1 d ABRAHAM by U/S: 05/20/2024 Method of dating: Restore dating from previous exam Assigned: based on stated ABRAHAM, selected on 01/09/2024 Assigned GA 30 w + 0 d Assigned ABRAHAM: 05/14/2024 BIOMETRY ----- BPD ?71.5 ? mm ? 28w 5d ? 8% ?Hadlock OFD ?94.9 ? mm ? 30w 4d ? 67% ?Lisa ? 267.1 ?mm ? 29w 1d ? 4% ?Hadlock Cerebellum tr ?34.8 ? mm ? 30w 4d ? 47% ?Brian AC ? 251.0 ?mm ? 29w 2d ? 25% ?Hadlock Femur ?56.5 ? mm ? 29w 5d ? 26% ?Hadlock HC / AC ?1.06 ?38% ? Nicolaides Weight Calculation: EFW ? 1,380 ? g ? 29w 0d ?19% ?Hadlock EFW (lb,oz) ? 3 lb 1 ?oz EFW by ?Hadlock ([id number]) Head / Face / Neck Biometry: Compliance Monitor ? 3.3 ? mm CM ? 11.1 ?mm ?>99% ?Nicolaides Extremities / Bony Struc Biometry: FL / BPD ?0.79 FL / HC ? 0.21 FL / AC ? 0.23 GENERAL EVALUATION ----- Cardiac activity present. FHR 137 bpm. movements: present. Presentation: cephalic Placenta: Placental site: posterior Umbilical cord: Cord vessels: 3 vessel cord. Insertion site: placental insertion: normal Amniotic fluid: Amount of AF: normal amount. MVP 4.7 cm. JESUS 12.1 cm. Q1 4.7 cm, Q2 0.0 cm, Q3 3.6 cm, Q4 3.8 cm ANATOMY ----- The following structures appear normal: Head / Neck ? Cranium. Lateral ventricles. Choroid plexus. Midline falx. Cavum septi pellucidi. Cerebellum. Cisterna ?magna. Heart / Thorax ?4-chamber view. RVOT view. LVOT view. ?Diaphragm. Abdomen ? Stomach. Kidneys. Bladder. GROWTH OVERVIEW ----- Exam date ? GA ?BPD (mm) ? HC (mm) ?AC (mm) ? FL (mm) ?HL (mm) ?EFW (g) 01/09/2024 ?22w 0d ?50.8 ?24% ?192.0 ? 18% ?168.5 ?37% ?36.1 ?22% ?34.2 ?37% ?439 ? 27% 02/06/2024 ?26w 0d ?61.5 ?12% ?236.0 ? 16% ?215.1 ?41% ?46.7 ?23% ? 848 ? 29% 03/05/2024 ? 30w 0d ?71.5 ?8% ? 267.1 ? 4% ? 251.0 ?25% ?56.5 ?26% ? 1,380 ? 19% COMMENT ----- Patient's name and date of were verified by the operating room coordinator prior to the exam IMPRESSION ----- Viable at 30 weeks gestation complicated by chronic hypertension and previous Cephalic presentation The biometry is consistent with low normal growth Estimated weight at the 19th percentile with abdominal circumference at the 25th percentile No structural malformations identified within the limitations of a late ultrasound Amniotic fluid volume is normal Posterior placenta with normal placental cord insertion appreciated; placenta is not low-lying Recommendations: -Recommend a follow-up ultrasound to assess growth in 4 weeks -Recommend twice-weekly modified biophysical profile starting at 32 weeks gestation if patient is on medications to control her high blood pressure Procedure Note Blane Mena MD - 03/05/2024 STL FOLLOW UP ----- Pat. Name:Micheal ROSEN Date:03/05/2024 1:00pm Pat. NO: [id number] MD:YAA PENG [facility]Nick[facility] Barr RDMS :1990Age:34 ----- INDICATION ----- Screening Follow-Up Chronic Hypertension (HTN) History of PTL/PTD in Previous , Currently Maternal Care for Low Transverse Scar from Previous Delivery (Previous ) CODING ----- Diagnoses Z3A.30: Weeks of gestation O34.211: Maternal care for low transverse scarfrom previous delivery O09.213: Supervision of with history ofpre-term labor O10.013: Pre-existing essential hypertensioncomplicating Z36.3: Encounter for screening formalformations Procedures [id number]: Ultrasound, uterus, real time withimage documentation, follow up, transabdominal approach per fetus HISTORY ----- OB History 3. Para 2 T1P1L2 MATERNAL ASSESSMENT ----- Physical Exam Initial weight 73 kg, 160 lb. Initial BMI 30.25kg/m?? METHOD ----- Transabdominal ultrasound examination ----- Johnson . Number of fetuses: 1 DATING ----- GA by prior [id number] w + 0 d ABRAHAM by prior assessment:05/14/2024 Ultrasound examination on:03/05/2024 GA by U/S based upon:AC, BPD, EFW, Femur, HC GA by U/S29 w + 1 d ABRAHAM by U/S:05/20/2024 Method of dating:Restore dating from previous exam Assigned:based on stated ABRAHAM, selected on 01/09/2024 Assigned GA30 w + 0 d Assigned ABRAHAM:05/14/2024 BIOMETRY ----- BPD 71.5 mm 28w 5d8% Hadlock OFD 94.9 mm 30w 4d67% Lisa HC 267.1 mm 29w 1d4% Hadlock Cerebellum tr 34.8 mm 30w 4d47% Torres AC 251.0 mm 29w 2d25% Hadlock Femur 56.5 mm 29w 5d26% Hadlock HC / AC 1.06 38%Nicolaides Weight Calculation: EFW 1,380 g 29w 0d19% Hadlock EFW (lb,oz) 3 lb 1 oz EFW by Hadlock ([id number]-[id number]-FL) Head / Face / Neck Biometry: Compliance Monitor 3.3 mm CM 11.1 mm >99%Nicolaides Extremities / Bony Struc Biometry: FL / BPD 0.79 FL / HC 0.21 FL / AC 0.23 GENERAL EVALUATION ----- Cardiac activity present. FHR 137 bpm. movements: present.Presentation: cephalic Placenta: Placental site: posterior Umbilical cord: Cord vessels: 3 vessel cord. Insertion site: placentalinsertion: normal Amniotic fluid: Amount of AF: normal amount. MVP 4.7 cm. JESUS 12.1 cm. Q14.7 cm, Q2 0.0 cm, Q3 3.6 cm, Q4 3.8 cm ANATOMY ----- The following structures appear normal: Head / Neck Cranium. Lateral ventricles. Choroid plexus.Midline falx. Cavum septi pellucidi. Cerebellum. Cisterna magna. Heart / Thorax 4-chamber view. RVOT view. LVOT view. Diaphragm. Abdomen Stomach. Kidneys. Bladder. GROWTH OVERVIEW ----- Exam date GA BPD (mm) HC (mm) AC (mm) FL(mm) HL (mm) EFW (g) 01/09/2024 22w 0d 50.8 24% 192.0 18% 168.5 37%36.1 22% 34.2 37% 439 27% 02/06/2024 26w 0d 61.5 12% 236.0 16% 215.1 41%46.7 23% 848 29% 03/05/2024 30w 0d 71.5 8% 267.1 4% 251.0 25%56.5 26% 1,380 19% COMMENT ----- Patient's name and date of were verified by the operating room coordinator prior tothe exam IMPRESSION ----- Viable at 30 weeks gestation complicated by chronic hypertensionand previous Cephalic presentation The biometry is consistent with low normal growth Estimated weight at the 19th percentile with abdominal circumferenceat the 25th percentile No structural malformations identified within the limitations of alate ultrasound Amniotic fluid volume is normal Posterior placenta with normal placental cord insertion appreciated;placenta is not low-lying Recommendations: -Recommend a follow-up ultrasound to assess growth in 4 weeks -Recommend twice-weekly modified biophysical profile starting at 32 weeksgestation if patient is on medications to control her high blood pressure us Blane Mena MD US ORDERABLES Final Re sult * US OB DETAIL SINGLE GEST (01/09/2024 3:09 PM [facility]) Anatomical Region Laterality Modality Pelvis Ultrasound 01/09/2024 2:31 PM [facility] Narrative 01/09/2024 3:11 PM [facility] STL COMP ----- Pat. Name: ROXANA ROSEN Study Date: 01/09/2024 2:31pm Pat. NO: [id number] Referring ??MD: YAA PENG MD Site: [facility] Hand: Nicole Matthews RDMS : 1990 Age: 33 ----- INDICATION ----- Anatomy Survey ? no genetics Chronic Hypertension (HTN) ? labetalol History of PTL/PTD in Previous , ?indicated delivery G2 @ 30 weeks due to severe IUGR / decels Currently Maternal Care for Low Transverse Scar from ? x 1 Previous Delivery (Previous ) CODING ----- Diagnoses ? Z3A.22: Weeks of gestation ?O34.211: Maternal care for low transverse scar from previous delivery ?O09.212: Supervision of with history of pre-term labor ?O10.012: Pre-existing essential hypertension complicating ?Z36.3: Encounter for screening for malformations Procedures ?[id number]: Ultrasound, uterus, real time with image documentation, and maternal evaluation ?plus detailed anatomic examination, transabdominal approach HISTORY ----- OB History ? 3. Para 2 ?T1P1L2 MATERNAL ASSESSMENT ----- Physical Exam ? Weight 77 kg. Initial weight 73 kg, 160 lb. BMI 32.14 kg/m??. Initial BMI 30.25 kg/m??. Weight gain 5 kg, ?10 lb METHOD ----- Transabdominal ultrasound examination ----- Johnson . Number of fetuses: 1 DATING ----- Method of dating: based on stated ABRAHAM GA by prior assessment 22 w + 0 d ABRAHAM by prior assessment: 05/14/2024 Ultrasound examination on: 01/09/2024 GA by U/S based upon: AC, BPD, EFW, Femur, HC GA by U/S 21 w + 4 d ABRAHAM by U/S: 05/17/2024 Assigned: based on stated ABRAHAM, selected on 01/09/2024 Assigned GA 22 w + 0 d Assigned ABRAHAM: 05/14/2024 BIOMETRY ----- BPD ?50.8 ? mm ? 21w 3d ? 24% ?Hadlock OFD ?68.8 ? mm ? 23w 0d ? 81% ?Lisa HC ? 192.0 ?mm ? 21w 3d ? 18% ?Hadlock Cerebellum tr ?23.8 ? mm ? 22w 6d ? 85% ?Torres Nuchal fold ?4.8 ?mm AC ? 168.5 ?mm ? 21w 6d ? 37% ?Hadlock Femur ?36.1 ? mm ? 21w 3d ? 22% ?Hadlock Humerus ?34.2 ? mm ? 21w 5d ? 37% ?Lisa HC / AC ?1.14 ?40% ? Nicolaides Weight Calculation: EFW ?439 ? g ?21w 4d ?27% ?Hadlock EFW (lb,oz) ?0 lb 15 ? oz EFW by ?Hadlock ([id number]-HA-FL) Head / Face / Neck Biometry: Compliance Monitor ? 4.1 ?mm CM ? 3.3 ?mm ? 3% ?Nicolaides Outer IOD ? 31.1 ? mm ? 20w 0d ?2% ? Lisa Extremities / Bony Struc Biometry: FL / BPD ?0.71 FL / HC ? 0.19 FL / AC ? 0.21 GENERAL EVALUATION ----- Cardiac activity present. FHR 134 bpm. movements: present. Presentation: cephalic Placenta: Placental site: posterior. Placental derd-na-zgwahtby os distance 67 mm Umbilical cord: Cord vessels: 3 vessel cord. Insertion site: placental insertion: normal Amniotic fluid: Amount of AF: normal amount. MVP 5.8 cm ANATOMY ----- The following structures appear normal: Head / Neck ? Cranium. Lateral ventricles. Choroid plexus. Midline falx. Cavum septi pellucidi. Cerebellum. Cisterna ?magna. Thalami. ?Nuchal fold. Face ?Lips. Profile. Nose. Palate. Orbits. Heart / Thorax ?4-chamber view. RVOT view. LVOT view. 3-vessel view. 4-ctjpxo-ncebxhb view. Situs. Aortic arch view. ?Ductal arch view. Superior vena cava. Inferior vena cava. High short axis view. Cardiac rhythm. ?Diaphragm. Abdomen ? Abdominal wall. Stomach. Kidneys. Bladder. Spine ? Cervical spine. Thoracic spine. Lumbar spine. Sacral spine. Extremities / ? Arms. Right hand. Left hand. Legs. Right foot. Left foot. Skeleton MATERNAL STRUCTURES ----- Cervix ?Visualized ?Approach - Transabdominal: Cervical length 46.8 mm Right Ovary ? Suboptimal Left Ovary ?Suboptimal GROWTH OVERVIEW ----- Exam date ? GA ?BPD (mm) ? HC (mm) ?AC (mm) ? FL (mm) ?HL (mm) ?EFW (g) 01/09/2024 ?22w 0d ?50.8 ?24% ?192.0 ? 18% ?168.5 ?37% ?36.1 ?22% ?34.2 ?37% ?439 ? 27% COMMENT ----- Patient's name and date of were verified by the operating room coordinator before the exam IMPRESSION ----- 1. Single living fetus with a gestational age of 22w 0d based on the reported clinical dates. 2. Current growth parameters are consistent with the stated EDC. The fetus is appropriate for gestational age in size at the 27% (439 g). 3. Detailed anatomic survey is unremarkable. No gross structural abnormalities noted. No sonographic markers for aneuploidy noted. 4. Amniotic fluid volume is normal for gestational age. 5. The cervical length is within normal range for gestational age. 6. The right and left ovary are not well visualized. 7. Placenta is posterior . No previa/not low-lying. The placenta cord insertion is normal. Recommendations: - Continue serial growth at 4 week intervals. Thank you for allowing us to participate in the care of this patient. Procedure Note Katerin Abarca MD - 01/09/2024 STL COMP ----- Pat. Name:Micheal ROSEN Date:01/09/2024 2:31pm Pat. NO: [id number] :YAA PENG MD [facility]Nicole Matthews RDMS :1990Age:33 ----- INDICATION ----- Anatomy Survey no genetics Chronic Hypertension (HTN) labetalol History of PTL/PTD in Previous , indicated delivery G2@ 30 weeks due to severe IUGR / decels Currently Maternal Care for Low Transverse Scar from x 1 Previous Delivery (Previous ) CODING ----- Diagnoses Z3A.22: Weeks of gestation O34.211: Maternal care for low transverse scarfrom previous delivery O09.212: Supervision of with history ofpre-term labor O10.012: Pre-existing essential hypertensioncomplicating Z36.3: Encounter for screening formalformations Procedures [id number]: Ultrasound, uterus, real time withimage documentation, and maternal evaluation plus detailed anatomic examination,transabdominal approach HISTORY ----- OB History 3. Para 2 T1P1L2 MATERNAL ASSESSMENT ----- Physical Exam Weight 77 kg. Initial weight 73 kg, 160 lb. BMI32.14 kg/m??. Initial BMI 30.25 kg/m??. Weight gain 5 kg, 10 lb METHOD ----- Transabdominal ultrasound examination ----- Johnson . Number of fetuses: 1 DATING ----- Method of dating:based on stated ABRAHAM GA by prior [id number] w + 0 d ABRAHAM by prior assessment:05/14/2024 Ultrasound examination on:01/09/2024 GA by U/S based upon:AC, BPD, EFW, Femur, HC GA by U/S21 w + 4 d ABRAHAM by U/S:05/17/2024 Assigned:based on stated ABRAHAM, selected on 01/09/2024 Assigned GA22 w + 0 d Assigned ABRAHAM:05/14/2024 BIOMETRY ----- BPD 50.8 mm 21w 3d24% Hadlock OFD 68.8 mm 23w 0d81% Lisa HC 192.0 mm 21w 3d18% Hadlock Cerebellum tr 23.8 mm 22w 6d85% Torres Nuchal fold 4.8 mm AC 168.5 mm 21w 6d37% Hadlock Femur 36.1 mm 21w 3d22% Hadlock Humerus 34.2 mm 21w 5d37% Lisa HC / AC 1.14 40%Nicolaides Weight Calculation: EFW 439 g 21w 4d 27%Hadlock EFW (lb,oz) 0 lb 15 oz EFW by Hadlock ([id number]) Head / Face / Neck Biometry: Compliance Monitor 4.1 mm CM 3.3 mm 3%Nicolaides Outer IOD 31.1 mm 20w 0d 2%Lisa Extremities / Bony Struc Biometry: FL / BPD 0.71 FL / HC 0.19 FL / AC 0.21 GENERAL EVALUATION ----- Cardiac activity present. FHR 134 bpm. movements: present.Presentation: cephalic Placenta: Placental site: posterior. Placental jfuj-ci-yzazdsbe osdistance 67 mm Umbilical cord: Cord vessels: 3 vessel cord. Insertion site: placentalinsertion: normal Amniotic fluid: Amount of AF: normal amount. MVP 5.8 cm ANATOMY ----- The following structures appear normal: Head / Neck Cranium. Lateral ventricles. Choroid plexus.Midline falx. Cavum septi pellucidi. Cerebellum. Cisterna magna. Thalami. Nuchal fold. Face Lips. Profile. Nose. Palate. Orbits. Heart / Thorax 4-chamber view. RVOT view. LVOT view. 3-vesselview. 7-vyfywf-bdocncs view. Situs. Aortic arch view. Ductal arch view. Superior vena cava. Inferiorvena cava. High short axis view. Cardiac rhythm. Diaphragm. Abdomen Abdominal wall. Stomach. Kidneys. Bladder. Spine Cervical spine. Thoracic spine. Lumbar spine.Sacral spine. Extremities / Arms. Right hand. Left hand. Legs. Right foot.Left foot. Skeleton MATERNAL STRUCTURES ----- Cervix Visualized Approach - Transabdominal: Cervical length 46.8mm Right Ovary Suboptimal Left Ovary Suboptimal GROWTH OVERVIEW ----- Exam date GA BPD (mm) HC (mm) AC (mm) FL(mm) HL (mm) EFW (g) 01/09/2024 22w 0d 50.8 24% 192.0 18% 168.5 37%36.1 22% 34.2 37% 439 27% COMMENT ----- Patient's name and date of were verified by the operating room coordinator beforethe exam IMPRESSION ----- 1. Single living fetus with a gestational age of 22w 0d based on thereported clinical dates. 2. Current growth parameters are consistent with the stated EDC. The fetusis appropriate for gestational age in size at the 27% (439 g). 3. Detailed anatomic survey is unremarkable. No gross structuralabnormalities noted. No sonographic markers for aneuploidy noted. 4. Amniotic fluid volume is normal for gestational age. 5. The cervical length is within normal range for gestational age. 6. The right and left ovary are not well visualized. 7. Placenta is posterior . No previa/not low-lying. The placenta cordinsertion is normal. Recommendations: - Continue serial growth at 4 week intervals. Thank you for allowing us to participate in the care of this patient. us Yaa Peng MD ORDERABLES Final Res ult from Last 3 Months Insurance [employer] BLUE ACCESS/TRUE BLUE PPO Advance Directives For more information, please contact: [phone] * Full Code (Latest Code Status on File) Date Activated Date Inactivated Comments 08/20/2020 9:29 AM 08/24/2020 8:04 PM * Full Code Date Activated Date Inactivated Comments 08/20/2020 1:50 AM 08/20/2020 6:18 AM * Full Code Date Activated Date Inactivated Comments 08/18/2020 5:31 PM 08/20/2020 1:50 AM * Full Code Date Activated Date Inactivated Comments 08/04/2020 1:08 PM 08/12/2020 3:30 PM
--- OUTSIDE RECORDS SUMMARY | 2024-03-19 08:24 | XMS_ITS | Encounter Summary ---
Author Organization [facility] Address 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 Name Role Phone Unavailable Primary Care Provider Unavailabl e Encounter Details Date Type Department Care Team (Late st Contact Info) Description 06/07/2020 Abstract [facility] Maternal and Medicine - Medical [place] B [address] [place] [address] Kathi oCughlin MD [address] [place] [address] Social History Tobacco Use Types Packs/Day Years Used Date Smoking Tobacco: Never Assessed Comments Yes Sex and Gender Information Value Date Recorded Sex Assigned at Not on file Legal Sex Female 2:25 PM CDT Gender Identity Not on file Sexual Orientation Not on file COVID-19 Exposure Response Date Recorded In the last month, have you been in contact with someone who was confirmed or suspected to have Coronavirus / COVID-19? No / Unsure 06/09/2020 8:21 AM CDT documented as of this encounter Last Filed Vital Signs Vital Sign Reading Time Taken Comments Blood Pressure - - Pulse - - Temperature - - Respiratory Rate - - Oxygen Saturation - - Inhaled Oxygen Concentration - - Weight 74.8 kg (165 lb) 06/07/2020 2:37 PM CDT Height 154.9 cm (5' 1 ) 06/07/2020 2:37 PM CDT Body Mass Index 31.18 06/07/2020 2:37 PM CDT documented in this encounter Plan of Treatment Not on file documented as of this encounter Visit Diagnoses Not on filedocumented in this encounter
--- OUTSIDE RECORDS SUMMARY | 2024-03-19 08:24 | XMS_ITS | Clinical Summary ---
Author Organization [facility] [address] Address [address] [place] [address] Care Team Providers Care Marine Equipment Design Engineer Name Role Phone Brendan Jackie ASSEMBLY WORKER Primary Care Provider [phone] Allergies Active Allergy Reactions Criticality Noted Date Comments Morphine Unknown,Rash Medium 07/30/2015 Arm with IV turned red with administration Bupropion Rash Medium 12/24/2022 Medications UNABLE TO FIND Med Name: multivitamin gummies Active ondansetron ODT (ZOFRAN-ODT) 4 mg disintegrating tabletIndications: Nausea Take 1 tablet (4 mg total) by mouth every 8 (eight) hours as needed for nausea or vomiting 30 tablet 10/25/19 23 Active labetaloL (NORMODYNE,TRANDAT E) 200 mg tabletIndications: Hypertension, essential Take 1 tablet (200 mg total) by mouth 2 (two) times a day 180 tablet 3 11/24/19 23 Active Additional Information Patient not taking.Reported on 07/03/2023 hydrOXYzine (ATARAX) 10 mg tabletIndications: Rash and nonspecific skin eruption Take 1 tablet (10 mg total) by mouth 2 (two) times a day as needed for itching 90 tablet 12/05/19 23 Active Additional Information Patient not taking.Reported on 07/03/[address] (CYMBALTA) 30 mg capsuleIndications :Anxiety Take 1 capsule (30 mg total) by mouth daily 90 capsule 03/18/19 24 Active lisinopril-hydroCH LOROthiazide (ZESTORETIC) 20-12.5 mg per tabletIndications: hypertension Take 1 tablet by mouth daily 90 tablet 03/18/19 24 Active Eula 0.35 mg tablet Take 1 tablet (0.35 mg total) by mouth daily 04/15/19 24 Active Active Problems Problem Noted Date Diagnosed Date Hypertension, essential 10/23/2022 Assessment & Plan (12/24/2022 8:58 AM CDT): Currently well-controlled on labetalol BP at visit 158/96; patient's BP on 12/06 was 192/142 in CC Start lisinopril-hydrochlorothiazide 20-12.5 mg daily Wean labetalol over next 2 weeks Continue to monitor BP at home; follow up 6 weeks Assessment & Plan (11/23/2022 8:14 AM CDT): Blood pressure at target in office at 124/80 Continue labetalol 200 mg b.i.d. Anxiety 10/23/2022 Assessment & Plan (12/24/2022 8:57 AM CDT): Patient states her anxiety was well-controlled on Wellbutrin however, she developed a rash. Patient stopped Wellbutrin and rash resolved Start Cymbalta 30 mg daily Follow up 6 weeks Assessment & Plan (11/23/2022 8:13 AM CDT): Not well-controlled on Lexapro. Patient states she was having side effects of Lexapro including constant nausea and diarrhea. Patient advised to stop Lexapro Start Wellbutrin 150 mg daily Follow up in 1 month or sooner if needed Abnormal test 08/19/2020 Poor growth affecting management of mother, antepartum 08/04/2020 High-risk , second trimester 07/07/2020 Chronic hypertension in 06/09/2020 Overview (07/03/2023): MFM consult with MS 06/09/20 Baseline PEC [...] timing to be determined as the progresses Calculus of gallbladder 08/03/2015 Overview (05/31/2016): Stones in gallbladder Immunizations Name Administration Dates Next Due Influenza, Quadrivalent, Spl it, Preservative Free, Intramuscular 12/24/2022 Influenza, Unspecified 11/23/2022(Deferr ed: Patient Refused),10/23/2022(Deferred: Patient Refused),11/25/2021,10/26/2021(Deferre d: Patient Refused),10/26/2021(Deferred: Patient Refused) Tdap 08/19/2020 Surgical History Surgery Date Site/Laterality Comments SECTION CHOLECYSTECTOMY Medical History Medical History Date Comments Anxiety Depression Hypertension Family History Medical History Relation Name Comments Hypertension Brother Hypertension Father Lung cancer Maternal Grandfather Diabetes Maternal Grandmother Hypertension Maternal Grandmother Hypertension Mother Hypertension Sister Relation Name Status Comments Brother Alive Father Maternal Grandfather Maternal Grandmother Mother Alive Sister Alive Social History Tobacco Use Types Packs/Day Years Used Date Smoking Tobacco: Never Smokeless Tobacco: Never Tobacco Cessation:Counseling Given: Yes AUDIT-C Answer Date Recorded Q1: How often do you have a drink containing alcohol? Never 10/23/2022 Q2: How many drinks containi ng alcohol do you have on a typical day when you are drinking? Patient does not drink Q3: How often do you have si x or more drinks on one occasion? Never 10/23/2022 PHQ-2 Answer Date Recorded PHQ-2 Total Score (If total score is 3 or more points, staff should administer the PHQ-9) 0 12/24/2022 Personal Safety Answer Date Recorded Getting School Help Needed Not on file 02/05 Comments No Sex and Gender Information Value Date Recorded Sex Assigned at Not on file Legal Sex Female 1:39 PM ALIGNMENT TECHNICIAN Gender Identity Female 11/22/2022 10:27 AM CDT Sexual Orientation Straight 11/22/2022 10 :27 AM CDT Obstetrics History Last Filed Vital Signs Vital Sign Reading Time Taken Comments Blood Pressure 224/132 07/03/2023 12:42 PM CDT Pulse 98 07/03/2023 12:42 PM CDT Temperature 36.9 ??C (98.5 ??F) 07/03/2023 12:42 PM C DT Respiratory Rate 25 07/03/2023 12:42 PM CDT Oxygen Saturation 100% 07/03/2023 12:42 PM CDT Inhaled Oxygen Concentration - - Weight 65.8 kg (145 lb) 07/03/2023 12:42 PM CDT Height 157.5 cm (5' 2 ) 07/03/2023 12:42 PM CDT Body Mass Index 26.52 07/03/2023 12:42 PM CDT Plan of Treatment Health Maintenance Due Date Last Done Comments Cervical Cancer Screening 1992 Hepatitis C Screening 1992 Varicella Vaccines (1 of 2 - 13+ 2-dose series) 2005 Hepatitis B Screening 2010 Regular Well Visit/Exam 18-64 2010 Influenza Vaccine (#1) 2023 , 11/25/2021, 12/24/2014, Additional history exists Depression Screening 12/25/2023 12/24/2022, 11/23/2022, 10/23/2022 DTaP/Tdap/Td Vaccine (2 - Td or Tdap) 08/19/2030 08/19/2020 HPV Vaccines Aged Out No longer eligi ble based on patient's age to complete this topic Pneumococcal vaccine <65 Aged Out No longer eligible based on patient's age to complete this topic Insurance [place] [employer] Care Teams Marine Equipment Design Engineer Relationship Specialty Start Date End Date Jackie Cardona NP PCP - General Family Medicine 10/23/22
--- OUTSIDE RECORDS SUMMARY | 2024-03-19 08:24 | XMS_ITS | Referral Summary ---
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
== END 2024-03-14 20:22 | disposition home or self-care (01) ==
PROVIDERS: Admitting Provider Obstetrics & Gynecology Gynecology; PCP Nurse Practitioner; Visit Provider Obstetrics & Gynecology Gynecology
DX: O99.613 Diseases of the digestive system complicating pregnancy, third trimester (principal); K21.9 Gastro-esophageal reflux disease without esophagitis; K92.89 Other specified diseases of the digestive system; A08.4 Viral intestinal infection, unspecified; O16.3 Unspecified maternal hypertension, third trimester; Z3A.31 31 weeks gestation of pregnancy
CPT/HCPCS: 36415; 59025; 80053; 81001; 82570; 84132; 84156; 84550; 85025; 96361; 96365; 96366; 96375; 96376; A9270; G0378; G0379; J2405; J3480; J7040; J7121

== ENCOUNTER 2024-03-30 09:52 | Outpatient (CLI) | payer BC, SELFPAY ==
--- NOTE | ~2024-03-30 | US_ITS ---
EXAMINATION: US OB BPP wo non-stress DATE: 03/30/2024 11:50 INDICATION: Nonreactive nonstress test during third trimester TECHNIQUE: Real-time pelvic ultrasound was performed. The interpreting radiologist was not present fo r the study. COMPARISON: None. FINDINGS: There is a single living fetus in vertex presentation. The placenta is posterior. heart rate i s 132 beats per minute (bpm). Normal deepest vertical amniotic fluid pocket measurement of 3.6 cm Biophysical profile performed by the technologist: breathing (30 sec sustained breathing in 30 minutes): 2 out of 2 movement (3 gross body movements in 30 minutes): 2 out of 2 tone (one episode of pmrbdpa-suigcnwzo-ovzawao limb movement): 2 out of 2 Amniotic fluid pocket (2 cm): 2 out of 2 Total score: 8 out of 8 IMPRESSION: 1. Single living fetus in vertex presentation with heart rate of 132 bpm. 2. Biophysical profile 8 out of 8. Reviewed, dictated and finalized at location B. MERIZATION OVEN TENDER
[2024-03-30 10:16] VITALS: BP 121/76; PULSE 98
[2024-03-30 10:31] VITALS: BP 118/79; PULSE 90
[2024-03-30 10:37] LABS: Basophils Absolute Auto 0.1 K/mm3 (0.0-0.1); Basophils Percent Auto 0.5 % (0.2-1.2); Eosinophils Absolute Auto 0.1 K/mm3 (0-0.3); Eosinophils Percent Auto 1.3 % (0-4.4); Hematocrit 35.3 % (37.0-47.0); Immature Granulocyte Absolute 0.11 K/mm3 (0.00-0.031); Immature Granulocyte Percent A 1.1 % (0-0.5); Lymphocytes Absolute Auto 1.34 K/mm3 (0.9-3.2); Lymphocytes Percent Auto 13.7 % (18.3-44.2); Mean Corpuscular HGB Conc 31.2 g/dl (32-36); Mean Corpuscular Hemoglobin 24.8 pg (26-34); Mean Corpuscular Volume 79.5 fl (80-100); Mean Platelet Volume 10.6 fl (7.4-10.4); Monocytes Absolute Auto 0.6 K/mm3 (0.1-0.6); Monocytes Percent Auto 5.7 % (2.6-8.5); Neutrophils Absolute Auto 7.6 K/mm3 (1.3-6.7); Neutrophils Percent Auto 77.7 % (45.5-73.1); Platelet Count Result 232 k/mm3 (150-375); Red Blood Count 4.44 M/mm3 (4.2-5.4); Red Cell Distribution Width 14.5 % (11.5-14.5); White Blood Count 9.8 K/mm3 (4.5-10.0)
--- OUTSIDE RECORDS SUMMARY | 2024-03-30 10:41 | XMS_ITS | Clinical Summary ---
Author Organization [facility] [address] Address [address] [place] [address] Care Team Providers Care Risk Control Specialist Name Role Phone Brendan Jackie CASKET COVERER Primary Care Provider [phone] Allergies Active Allergy Reactions Criticality Noted Date [...] on file Legal Sex Female 1:39 PM ASSISTANT DISTRIBUTION MANAGER Gender Identity Female 11/22/2022 10:27 AM CDT [...] [place] [employer] Care Teams Risk Control Specialist Relationship Specialty Start Date End Date Jackie Cardona NP PCP - General Family Medicine 10/23/22
--- OUTSIDE RECORDS SUMMARY | 2024-03-30 10:41 | XMS_ITS | Clinical Summary ---
Author Organization [facility] Address [address] [place] [address] Phone Care Team Providers Care Vp Of Product Name Role Phone Unavailable Primary Care Provider [...] Encounters Date Type Department Care Team Description 03/25/2024 External Device Data STL ABSTRACTION Provider, Abstract 03/19/2024 External Device Data STL ABSTRACTION Provider, Abstract 03/05/2024 12:59 PM INFECTION PREVENTION PRACTITIONER - 03/05/2024 11:59 PM INFECTION PREVENTION PRACTITIONER Hospital Encounter [facility] Thuy Perez [address] [place] [phone] Blane Mena MD Discharge Disposition: Home or Self Care 02/06/2024 2:00 PM INFECTION PREVENTION PRACTITIONER - 02/06/2024 11:59 PM INFECTION PREVENTION PRACTITIONER Hospital Encounter [facility] Thuy Perez [address] [place] [phone] Nida Turner MD Discharge Disposition: Home or Self Care 01/14/2024 External Device Data STL ABSTRACTION Provider, Abstract 01/09/2024 1:56 PM INFECTION PREVENTION PRACTITIONER - 01/09/2024 11:59 PM INFECTION PREVENTION PRACTITIONER Hospital Encounter [facility] Thuy Perez [address] [place] [phone] Yaa Peng MD Discharge Disposition: Home or [...] SCREENING 2022 INFLUENZA VACCINE (#1) 2023 12/24/2022 DTAP/TDAP/TD VACCINES (2 - T d or Tdap) 08/19/2030 08/19/2020 HPV VACCINES Aged Out No longer eligi ble based on patient's age to complete this topic Procedures Procedure Name Priority Date/Time Associated Diagnosis Comments US OB FOLLOW UP PER FETUS Routine 03/05/2024 5:00 PM INFECTION PREVENTION PRACTITIONER History of prior with IUGR Chronic hypertension in US OB FOLLOW UP PER FETUS Routine 02/06/2024 2:36 PM INFECTION PREVENTION PRACTITIONER Chronic hypertension in History of delivery, currently US OB DETAIL SINGLE GEST Routine 01/09/2024 3:09 PM INFECTION PREVENTION PRACTITIONER screening for malformation using ultrasonics Chronic hypertension affecting from Last 3 Months Results * US OB FOLLOW UP PER FETUS (03/05/2024 5:00 PM INFECTION PREVENTION PRACTITIONER) Only the most recent of2 resultswithin the time period is included. Anatomical Region Laterality Modality Pelvis Ultrasound 03/05/2024 1:00 PM INFECTION PREVENTION PRACTITIONER Narrative 03/05/2024 1:39 PM INFECTION PREVENTION PRACTITIONER STL FOLLOW UP ----- Pat. Name: ROXANA ROSEN Study Date: 03/05/2024 1:00pm Pat. NO: [id number] Referring ??MD: YAA PENG MD Site: [place] [facility]cher: Nickie Barr RDMS : 1990 Age: 34 [...] ?Z36.3: Encounter for screening for malformations Procedures ?28442: Ultrasound, uterus, real time with image documentation, [...] mm ? 30w 4d ? 67% ?Lisa HC ? 267.1 ?mm ? 29w 1d ? 4% ?Hadlock Cerebellum tr ?34.8 ? mm ? 30w 4d ? 47% ?Torres AC ? 251.0 ?mm ? 29w 2d ? 25% ?Hadlock Femur ?56.5 ? mm ? 29w 5d ? 26% ?Hadlock HC / AC ?1.06 ?38% ? Nicolaides Weight Calculation: EFW ? 1,380 ? g ? 29w 0d ?19% ?Hadlock EFW (lb,oz) ? 3 lb 1 ?oz EFW by ?Hadlock ([id number]) Head / Face / Neck Biometry: Cafe Helper ? 3.3 ? mm CM ? 11.1 [...] and date of were verified by the avionics engineer prior to the exam IMPRESSION ----- Viable [...] Pat. Name:Micheal ROSEN Date:03/05/2024 1:00pm Pat. NO: [id number] MD:YAA PENG MD [facility]Nick[facility] Barr RDMS :1990Age:34 ----- INDICATION ----- Screening Follow-Up Chronic Hypertension (HTN) History of PTL/PTD in Previous , Currently Maternal Care for Low Transverse Scar from Previous Delivery (Previous ) CODING ----- Diagnoses Z3A.30: Weeks of gestation O34.211: Maternal care for low transverse scarfrom previous delivery O09.213: Supervision of with history ofpre-term labor O10.013: Pre-existing essential hypertensioncomplicating Z36.3: Encounter for screening formalformations Procedures 62856: Ultrasound, uterus, real time withimage documentation, follow up, transabdominal approach per fetus HISTORY ----- OB History 3. Para 2 T1P1L2 MATERNAL ASSESSMENT ----- Physical Exam Initial weight 73 kg, 160 lb. Initial BMI 30.25kg/m?? METHOD ----- Transabdominal ultrasound examination ----- Johnson . Number of fetuses: 1 DATING ----- GA by prior [id number] w + 0 d ABRAHAM by prior [...] 3 lb 1 oz EFW by Hadlock ([id number]) Head / Face / Neck Biometry: Cafe Helper 3.3 mm CM 11.1 mm >99%Haydenides Extremities / Bony Struc Biometry: FL / [...] and date of were verified by the avionics engineer prior tothe exam IMPRESSION ----- Viable at [...] OB DETAIL SINGLE GEST (01/09/2024 3:09 PM INFECTION PREVENTION PRACTITIONER) Anatomical Region Laterality Modality Pelvis Ultrasound 01/09/2024 2:31 PM INFECTION PREVENTION PRACTITIONER Narrative 01/09/2024 3:11 PM INFECTION PREVENTION PRACTITIONER STL COMP ----- Pat. Name: ROXANA ROSEN Study Date: 01/09/2024 2:31pm Pat. NO: [id number] Referring ??MD: YAA PENG MD Site: [place] [employer]: Nicole Matthews RDMS : 1990 Age: 33 [...] ?Z36.3: Encounter for screening for malformations Procedures ?[id number]: Ultrasound, uterus, real time with image documentation, [...] lb 15 ? oz EFW by ?Hadlock ([id number]) Head / Face / Neck Biometry: Cafe Helper ? 4.1 ?mm CM ? 3.3 ?mm ? 3% ?Nicolaides Outer IOD ? 31.1 ? mm ? 20w 0d ?2% ? Lisa Extremities / Bony Struc Biometry: FL / BPD ?0.71 FL / HC ? 0.19 FL / AC ? 0.21 GENERAL EVALUATION ----- Cardiac activity present. FHR 134 bpm. movements: present. Presentation: cephalic Placenta: Placental site: posterior. Placental glpn-xe-nvxvvmtk os distance 67 mm Umbilical cord: Cord [...] view. RVOT view. LVOT view. 3-vessel view. 6-kjhrzl-wdzplgj view. Situs. Aortic arch view. ?Ductal arch [...] and date of were verified by the avionics engineer before the exam IMPRESSION ----- 1. Single [...] Pat. Name:Micheal ROSEN Date:01/09/2024 2:31pm Pat. NO: [id number] MD:YAA PENG MD [facility]Nicole Matthews RDMS :1990Age:33 ----- INDICATION ----- Anatomy [...] hypertensioncomplicating Z36.3: Encounter for screening formalformations Procedures [id number]: Ultrasound, uterus, real time withimage documentation, and [...] dating:based on stated ABRAHAM GA by prior [id number] w + 0 d ABRAHAM by prior [...] 0 lb 15 oz EFW by Hadlock ([id number]) Head / Face / Neck Biometry: Cafe Helper 4.1 mm CM 3.3 mm 3%Nicolaides Outer IOD 31.1 mm 20w 0d 2%Lisa Extremities / Bony Struc Biometry: FL / BPD 0.71 FL / HC 0.19 FL / AC 0.21 GENERAL EVALUATION ----- Cardiac activity present. FHR 134 bpm. movements: present.Presentation: cephalic Placenta: Placental site: posterior. Placental zpoo-xd-fjmzcgrd osdistance 67 mm Umbilical cord: Cord vessels: [...] 4-chamber view. RVOT view. LVOT view. 3-vesselview. 3-xzxdao-hsfmdsu view. Situs. Aortic arch view. Ductal arch [...] and date of were verified by the avionics engineer beforethe exam IMPRESSION ----- 1. Single living [...] of this patient. us Yaa Peng MD US ORDERABLES Final Res ult from Last 3 Months Insurance [employer] BCBS BLUE ACCESS/TRUE BLUE PPO Advance Directives For more information, please contact: [phone] * Full Code (Latest Code Status on [...]
--- OUTSIDE RECORDS SUMMARY | 2024-03-30 10:42 | XMS_ITS | Clinical Summary ---
Author Organization [facility] Address [address] [place] [address] Phone Care Team Providers Care Internet Sales Manager Name Role Phone Provider, None Primary Care Provider Unavailabl e Allergies Active Allergy Reactions Criticality Noted Date Comments Morphine Rash 07/30/2015 Medications ondansetron (ZOFRAN) 4 MG Tablet Take 1 Tab by mouth every 8 hours as needed for Nausea. 10 Tab 0 07/30/2015 Active Social History Tobacco Use Types Packs/Day Years Used Date Smoking Tobacco: Never Alcohol Use Standard Drinks/Week Comments No 0 (1 standard drink = 0.6 oz pur e alcohol) Comments No Sex and Gender Information Value Date Recorded Sex Assigned at Not on file Legal Sex Female 10:44 PM CDT Gender Identity Not on file Sexual Orientation Not on file Last Filed Vital Signs Vital Sign Reading Time Taken Comments Blood Pressure 136/84 07/30/2015 6:45 AM CDT Pulse 91 07/30/2015 4:54 AM CDT Temperature 35.8 ??C (96.4 ??F) 07/30/2015 4:54 AM CD T Respiratory Rate 16 07/30/2015 4:54 AM CDT Oxygen Saturation 99% 07/30/2015 4:54 AM CDT Inhaled Oxygen Concentration - - Weight 61.2 kg (135 lb) 07/30/2015 4:54 AM CDT Height 154.9 cm (5' 1 ) 07/30/2015 4:54 AM CDT Body Mass Index 25.51 07/30/2015 4:54 AM CDT Plan of Treatment Not on file Care Teams Internet Sales Manager Relationship Specialty Start Date End Date Provider, None [place] PCP - General 07/30/15
--- OUTSIDE RECORDS SUMMARY | 2024-03-30 10:42 | XMS_ITS | Referral Summary ---
Author Organization [facility] [address] Address [address] [place] [address] Care Team Providers Care Microfiche Duplicator Name Role Phone Brendan Jackie DIETARY TECH Primary Care Provider Allergies Active Allergy Reactions Criticality Noted Date [...] on file Legal Sex Female 1:39 PM DRAPERY EXAMINER Gender Identity Female 11/22/2022 10:27 AM CDT [...] BL CHOICE PRF PPO [place] Care Teams Microfiche Duplicator Relationship Specialty Start Date End Date Jackie Cradona NP PCP - General Family Medicine 10/23/22
--- OUTSIDE RECORDS SUMMARY | 2024-03-30 10:42 | XMS_ITS | Encounter Summary ---
Author Organization [facility] Address [address] [place] [address] Care Team Providers Care Registered Respiratory Therapist Name Role Phone Unavailable Primary Care Provider Unavailabl e Encounter Details Date Type Department Care Team (Late st Contact Info) Description 06/07/2020 Abstract [facility] Maternal and Medicine - Medical [place] B [address] [place] [address] Kathi Coughlin MD [address] [place] [address] Social History Tobacco Use Types [...]
[2024-03-30 10:46] VITALS: BP 130/85; PULSE 93
[2024-03-30 10:48] LABS: Creatinine Urine 10.1 mg/dL; Total Protein Urine Random 17 mg/dL; Ur Ttl Prot Creatinine Ratio 1.68 mg/mg (0-0.20)
[2024-03-30 10:50] LABS: Alanine Aminotransferase 20 U/L (6-35); Albumin Level 3.8 g/dL (3.5-5.1); Alkaline Phosphatase 281 U/L (38-126); Anion Gap 10 mmol/L (4-12); Aspartate Amino Transferase 20 U/L (14-36); Bilirubin,Total 0.4 mg/dL (0.2-1.3); Blood Urea Nitrogen 7 mg/dL (7-17); Calcium 9.9 mg/dL (8.4-10.2); Carbon Dioxide 22 mmol/L (22-30); Chloride 104 mmol/L (98-107); Estimated Glomerular Filt Rate > 60; Glucose 119 mg/dL (65-110); Sodium 136 mmol/L (137-145); Uric Acid 5.4 mg/dL (2.5-7.5)
[2024-03-30 10:59] LABS: Add Urine Microscopic? YES; Appearance Urine Clear (Clear); Bacteria Urine Rare /hpf; Bilirubin Urine Negative (Negative); Blood Urine Negative (Negative); Color Urine Yellow (Yellow); Glucose Urine UA Negative (Negative); Ketones Urine Negative (Negative); Leukocyte Esterase Ur 1+ LEU/UL (Negative); Need Manual Microscopic Reviewed; Nitrate Urine Negative (Negative); Non Pathogenic Casts 0-2; Protein Urine Negative (Negative); RBC Urine 0-2 /hpf (0-2); Specific Grav Ur 1.003 (1.001-1.035); Squamous Epithelial Cell Urine None Seen /hpf (Few); Urobilinogen Urine 0.2 mg/dL (<2.0); WBC Urine 0-5 /hpf (0-3)
[2024-03-30 11:01] VITALS: BP 133/85; PULSE 87
[2024-03-30 11:16] VITALS: BP 126/83; PULSE 75
[2024-03-30 11:58] VITALS: BP 121/76; PULSE 97; BMI 29.3
== END 2024-03-30 11:58 | disposition home or self-care (01) ==
LOC: ANHOBOP 09:58 → ANHOBPP 10:15
PROVIDERS: PCP Nurse Practitioner; Visit Provider Obstetrics & Gynecology Gynecology
DX: O13.9 Gestational [pregnancy-induced] hypertension without significant proteinuria, unspecified trimester (principal); Z3A.00 Weeks of gestation of pregnancy not specified
CPT/HCPCS: 36415; 59025; 76819; 80053; 81001; 82570; 84156; 84550; 85025; 87086; 99199

== ENCOUNTER 2024-03-31 13:06 | Outpatient (NON) | payer BC, SELFPAY ==
--- OUTSIDE RECORDS SUMMARY | 2024-03-31 13:25 | XMS_ITS | Referral Summary ---
Author Organization [facility] [address] Address [address] [place] [address] Care Team Providers Care Quality Assurance Practice Manager Name Role Phone Brendan Jackie EMERGENCY VEHICLE OPERATIONS INSTRUCTOR Primary Care Provider [phone] Allergies Active Allergy Reactions Criticality Noted Date [...] on file Legal Sex Female 1:39 PM TIP LENGTH CHECKER Gender Identity Female 11/22/2022 10:27 AM CDT [...] BL CHOICE PRF PPO [place] Care Teams Quality Assurance Practice Manager Relationship Specialty Start Date End Date Jackie Cardona NP PCP - General Family Medicine 10/23/22
--- OUTSIDE RECORDS SUMMARY | 2024-03-31 13:25 | XMS_ITS | Encounter Summary ---
Author Organization [facility] Address [address] [place] [address] Care Team Providers Care Armored Car Guard Name Role Phone Unavailable Primary Care Provider Unavailabl e Encounter Details Date Type Department Care Team (Late st Contact Info) Description 06/07/2020 Abstract [facility] Maternal and Medicine - Medical [place] B [address] [place] [address] Kathi Coughlin MD [address] [place] [address] Social History Tobacco Use Types [...]
--- OUTSIDE RECORDS SUMMARY | 2024-03-31 13:25 | XMS_ITS | Clinical Summary ---
Author Organization [facility] Address [address] [place] [address] Phone Care Team Providers Care Wedding Decorator Name Role Phone Provider, None Primary Care [...] of Treatment Not on file Care Teams Wedding Decorator Relationship Specialty Start Date End Date Provider, None [place] PCP - General 07/30/15
--- OUTSIDE RECORDS SUMMARY | 2024-03-31 13:25 | XMS_ITS | Clinical Summary ---
Author Organization [facility] Address [address] [place] [phone] Phone Care Team Providers Care Conductor/Engineer Name Role Phone Unavailable Primary Care Provider [...] STL ABSTRACTION Provider, Abstract 03/05/2024 12:59 PM FIGURE SKATER - 03/05/2024 11:59 PM FIGURE SKATER Hospital Encounter [facility] Thuy Perez [address] [place] [phone] Blane Mena MD Discharge Disposition: Home or Self Care 02/06/2024 2:00 PM FIGURE SKATER - 02/06/2024 11:59 PM FIGURE SKATER Hospital Encounter [facility] Thuy Perez [address] [place] [phone] Nida Turner MD Discharge Disposition: Home or Self Care 01/14/2024 External Device Data STL ABSTRACTION Provider, Abstract 01/09/2024 1:56 PM FIGURE SKATER - 01/09/2024 11:59 PM FIGURE SKATER Hospital Encounter [facility] Thuy Perez [address] [place] [phone] Yaa Peng MD Discharge Disposition: Home or [...] UP PER FETUS Routine 03/05/2024 5:00 PM FIGURE SKATER History of prior with IUGR Chronic hypertension in US OB FOLLOW UP PER FETUS Routine 02/06/2024 2:36 PM FIGURE SKATER Chronic hypertension in History of delivery, currently US OB DETAIL SINGLE GEST Routine 01/09/2024 3:09 PM FIGURE SKATER screening for malformation using ultrasonics Chronic hypertension affecting from Last 3 Months Results * US OB FOLLOW UP PER FETUS (03/05/2024 5:00 PM FIGURE SKATER) Only the most recent of2 resultswithin the time period is included. Anatomical Region Laterality Modality Pelvis Ultrasound 03/05/2024 1:00 PM FIGURE SKATER Narrative 03/05/2024 1:39 PM FIGURE SKATER STL FOLLOW UP ----- Pat. Name: ROXANA ROSEN Study Date: 03/05/2024 1:00pm Pat. NO: [id number] Referring ??MD: YAA PENG MD Site: [facility] Field Technician: Nickie Barr RDMS : 1990 Age: 34 [...] ?Z36.3: Encounter for screening for malformations Procedures ?75911: Ultrasound, uterus, real time with image documentation, [...] 3 lb 1 ?oz EFW by ?Hadlock ([id number]-[id number]-PM-FL) Head / Face / Neck Biometry: Mac Developer ? 3.3 ? mm CM ? 11.1 [...] and date of were verified by the jive developer prior to the exam IMPRESSION ----- Viable [...] Pat. Name:Micheal ROSEN Date:03/05/2024 1:00pm Pat. NO: [id number] MD:YAA PENG MD [facility] RD[facility] :1990Age:34 ----- INDICATION ----- Screening Follow-Up Chronic Hypertension (HTN) History of PTL/PTD in Previous , Currently Maternal Care for Low Transverse Scar from Previous Delivery (Previous ) CODING ----- Diagnoses Z3A.30: Weeks of gestation O34.211: Maternal care for low transverse scarfrom previous delivery O09.213: Supervision of with history ofpre-term labor O10.013: Pre-existing essential hypertensioncomplicating Z36.3: Encounter for screening formalformations Procedures 08967: Ultrasound, uterus, real time withimage documentation, follow up, transabdominal approach per fetus HISTORY ----- OB History 3. Para 2 T1P1L2 MATERNAL ASSESSMENT ----- Physical Exam Initial weight 73 kg, 160 lb. Initial BMI 30.25kg/m?? METHOD ----- Transabdominal ultrasound examination ----- Johnson . Number of fetuses: 1 DATING ----- GA by prior [id number] w + 0 d ABRAHAM by prior [...] 3 lb 1 oz EFW by Hadlock (AND-LM-OB-FL) Head / Face / Neck Biometry: Mac Developer 3.3 mm CM 11.1 mm >99%Haydenides Extremities [...] and date of were verified by the jive developer prior tothe exam IMPRESSION ----- Viable at [...] OB DETAIL SINGLE GEST (01/09/2024 3:09 PM FIGURE SKATER) Anatomical Region Laterality Modality Pelvis Ultrasound 01/09/2024 2:31 PM FIGURE SKATER Narrative 01/09/2024 3:11 PM FIGURE SKATER STL COMP ----- Pat. Name: ROXANA ROSEN Study Date: 01/09/2024 2:31pm Pat. NO: [id number] Referring ??MD: YAA PENG MD Site: [facility] Field Technician: Nicole Matthews RDMS : 1990 Age: 33 [...] ?Z36.3: Encounter for screening for malformations Procedures ?33561: Ultrasound, uterus, real time with image documentation, [...] lb 15 ? oz EFW by ?Hadlock ([id number]-CF-SP-FL) Head / Face / Neck Biometry: Mac Developer ? 4.1 ?mm CM ? 3.3 ?mm ? 3% ?Nicolaides Outer IOD ? 31.1 ? mm ? 20w 0d ?2% ? Lisa Extremities / Bony Struc Biometry: FL / BPD ?0.71 FL / HC ? 0.19 FL / AC ? 0.21 GENERAL EVALUATION ----- Cardiac activity present. FHR 134 bpm. movements: present. Presentation: cephalic Placenta: Placental site: posterior. Placental xics-xv-zipqqsxy os distance 67 mm Umbilical cord: Cord [...] view. RVOT view. LVOT view. 3-vessel view. 9-ogtkeb-mxrvvrx view. Situs. Aortic arch view. ?Ductal arch [...] and date of were verified by the jive developer before the exam IMPRESSION ----- 1. Single [...] Pat. Name:Micheal ROSEN Date:01/09/2024 2:31pm Pat. NO: [id number] MD:YAA PENG MD [facility] RDMS :1990Age:33 ----- INDICATION ----- [...] hypertensioncomplicating Z36.3: Encounter for screening formalformations Procedures [id number]: Ultrasound, uterus, real time withimage documentation, and [...] dating:based on stated ABRAHAM GA by prior [id number] w + 0 d ABRAHAM by prior [...] 0 lb 15 oz EFW by Hadlock (OPB-JB-RW-FL) Head / Face / Neck Biometry: Mac Developer 4.1 mm CM 3.3 mm 3%Nicolaides Outer IOD 31.1 mm 20w 0d 2%Lisa Extremities / Bony Struc Biometry: FL / BPD 0.71 FL / HC 0.19 FL / AC 0.21 GENERAL EVALUATION ----- Cardiac activity present. FHR 134 bpm. movements: present.Presentation: cephalic Placenta: Placental site: posterior. Placental ilve-ar-aefqitiq osdistance 67 mm Umbilical cord: Cord vessels: [...] 4-chamber view. RVOT view. LVOT view. 3-vesselview. 8-dqarfd-mnjwkgr view. Situs. Aortic arch view. Ductal arch [...] and date of were verified by the jive developer beforethe exam IMPRESSION ----- 1. Single living [...] Advance Directives For more information, please contact: [phone] * Full Code (Latest Code Status on [...]
--- OUTSIDE RECORDS SUMMARY | 2024-03-31 13:25 | XMS_ITS | Clinical Summary ---
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
[2024-03-31 13:39] VITALS: BMI 29.3
[2024-03-31 14:45] LABS: Collection Time Urine 24 HOURS; Patient Weight 155 Lbs; Total Volume 24 Hour Urine 550 ml
[2024-03-31 14:59] LABS: Creatinine Clearance Urine 109.6 ml/min (75-125); Creatinine Urine 142.9 mg/dL; Serum Creat 0.51; Total Protein Urine 24 Hr 77 mg/24hr (28-141); Total Protein Urine Random 14 mg/dL
== END 2024-03-31 13:07 | disposition home or self-care (01) ==
PROVIDERS: PCP Nurse Practitioner; Visit Provider Obstetrics & Gynecology Gynecology
DX: O13.9 Gestational [pregnancy-induced] hypertension without significant proteinuria, unspecified trimester (principal); Z3A.00 Weeks of gestation of pregnancy not specified
CPT/HCPCS: 81050; 82575; 84156

== ENCOUNTER 2024-04-16 14:10 | Outpatient (RCR) | payer BC, SELFPAY ==
--- NOTE | ~2024-04-16 | US_ITS ---
EXAMINATION: US OB BPP wo non-stress DATE: 04/16/2024 16:03 INDICATION: Nonreactive nonstress test. Third trimester. TECHNIQUE: Real-time pelvic ultrasound was performed. COMPARISON: Ultrasound 03/30/2024 FINDINGS: There is a single living fetus in vertex presentation. The placenta is right posterior. heart rate is 134 beats per minute (bpm). The amniotic fluid index is 6.1 cm which is low (5th percentile i s 7.7 cm). The cervical length is 3.5 cm on transabdominal images, which is normal. Biophysical profile performed by the technologist: breathing (30 sec sustained breathing in 30 minutes): 2 out of 2 movement (3 gross body movements in 30 minutes): 2 out of 2 tone (one episode of szoopym-xobedfolz-jyvlpdi limb movement): 2 out of 2 Amniotic fluid pocket (2 cm): 2 out of 2 Total score: 8 out of 8 IMPRESSION: 1. Single living fetus in vertex presentation. 2. Biophysical profile 8 out of 8. 3. Oligohydramnios. Reviewed, dictated and finalized at location A. ASSISTANT
[2024-04-16 16:25] VITALS: BP 124/79; PULSE 98
== END 2024-04-25 07:40 | disposition home or self-care (01) ==
LOC: ANHOBOP 14:10
PROVIDERS: PCP Nurse Practitioner; Visit Provider Obstetrics & Gynecology Gynecology
DX: O13.9 Gestational [pregnancy-induced] hypertension without significant proteinuria, unspecified trimester (principal)
CPT/HCPCS: 59025; 76819

== ENCOUNTER 2024-04-20 09:46 | Outpatient (CLI) | payer BC, SELFPAY ==
--- NOTE | ~2024-04-20 | US_ITS ---
EXAMINATION: US OB follow up DATE: 04/20/2024 10:13 INDICATION: Chronic hypertension during third trimester of TECHNIQUE: Real-time ultrasound of the pelvis was performed. The interpreting radiologist was not pre sent for the study. COMPARISON: Ultrasound dated 04/18/2024 FINDINGS: There is a single living fetus in vertex presentation. The placenta is posterior and not low-lying. heart rate is 131 beats per minute (bpm). The amniotic fluid index is 6.2 cm, which is below n ormal range (5th%-95%: 7.7-24.9 cm at 36 weeks estimated gestational age). Normal cervical length of 4.0 cm. Persistent mildly prominent renal pelvis of at least one of the kidneys which measures up to 6 mm in maximal AP dimension which remains within normal limits for age. Normal fluid-filled bl adder. The following biometric data were obtained: BPD: 8.3 cm -> 33 weeks 3 days Head circumference: 29.9 cm -> 33 weeks 1 days Abdominal circumference: 29.1 cm -> 33 weeks 1 days Femur length: 6.5 cm -> 33 weeks 2 days These measurements are concordant. Head circumference to abdominal circumference ratio: 1.03 (normal range 0.96-1.11). Estimated weight: 2139 g (+/-) 321 g or 4 lbs. 11 oz. (+/-) 11 oz. IMPRESSION: 1. Single living fetus in vertex presentation with heart rate of 131 bpm. 2. Persistent oligohydramnios with amniotic fluid index of 6.2 cm. 3. Estimated weight is <3rd percentile by Hadlock criteria when 05/14/2024 is used as the estima tara date of delivery (ABRAHAM). Please correlate with clinical information or earlier ultrasounds for mos t accurate ABRAHAM. Reviewed, dictated and finalized at location B. OMS CONSULTANT IMPRESSION: 1. Single living fetus in vertex presentation with heart rate of 131 bpm. 2. Persistent oligohydramnios with amniotic fluid index of 6.2 cm. 3. Estimated weight is <3rd percentile by Hadlock criteria when 05/14/2024 is used as the estimated date of delivery (ABRAHAM). Please correlate with clinica l information or earlier ultrasounds for most accurate ABRAHAM.
== END 2024-04-20 09:47 | disposition home or self-care (01) ==
PROVIDERS: PCP Obstetrics & Gynecology Gynecology; Visit Provider Obstetrics & Gynecology Gynecology
DX: O10.019 Pre-existing essential hypertension complicating pregnancy, unspecified trimester (principal); Z3A.00 Weeks of gestation of pregnancy not specified
CPT/HCPCS: 76816

== ENCOUNTER 2024-04-22 05:26 | Inpatient (IN) | payer BC, SELFPAY ==
[2024-04-22] VITALS (95 sets, daily range): BP systolic 109–202; BP diastolic 69–116; PULSE 56–90; RESP 16–18; TEMP 35.9–36.3; O2SAT 92–100; BMI 27.5
--- OUTSIDE RECORDS SUMMARY | 2024-04-22 00:14 | XMS_ITS | Referral Summary ---
Author Organization [facility] [address] Address [address] [place] [address] Care Team Providers Care Tetryl Nitrator Operator Name Role Phone Jackie Cardona NP Primary Care Provider [phone] Encounters Date Type Department Care Team Description 04/20/2024 Orders Only [facility] Health Information Management [address] [place] [address] Scanning, Provider 03/31/2024 Orders Only [facility] Health Information Management [address] [place] [address] Scanning, Provider from Last 3 Months Allergies Active Allergy Reactions Criticality Noted Date [...] 08/03/2015 Overview (05/31/2016): Stones in gallbladder Immunizations Immunization Administration Dates Next Due Influenza, Quadrivalent, Spl [...] on file Legal 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 Female 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 Gender Identity Female 11/22/2022 10:27 AM CDT Sexual Orientation Straight 11/22/2022 10 :27 AM CDT Last Filed Vital Signs Vital Sign Reading Time Taken Comments Blood Pressure 224/132 07/03/2023 12:42 PM CDT Pulse 98 07/03/2023 12:42 PM CDT Temperature 36.9 C (98.5 F) 07/03/2023 12:42 PM CDT Respiratory Rate 25 07/03/2023 12:42 PM CDT Oxygen Saturation 100% 07/03/2023 12:42 PM CDT Inhaled Oxygen Concentration - - Weight 65.8 kg (145 lb) 07/03/2023 12:42 PM CDT Height 157.5 cm (5' 2 ) 07/03/2023 12:42 PM CDT Body Mass Index 26.52 07/03/2023 12:42 PM CDT Plan of Treatment Not on file Procedures Procedure Name Priority Date/Time Associated Diagnosis Comments SCAN - RADIOLOGY/IMAGING 04/20/2024 9:05 PM BURIAL VAULT DELIVERER AND INSTALLER SCAN - RADIOLOGY/IMAGING 03/31/2024 9:04 PM BURIAL VAULT DELIVERER AND INSTALLER from Last 3 Months Results * SCAN - RADIOLOGY/IMAGING (04/20/2024 9:05 PM BURIAL VAULT DELIVERER AND INSTALLER) Anatomical Region Laterality Modality Other us Provider Scanning Final Result * SCAN - RADIOLOGY/IMAGING (03/31/2024 9:04 PM BURIAL VAULT DELIVERER AND INSTALLER) Anatomical Region Laterality Modality Other us Provider Scanning Final Result from Last 3 Months Insurance [employer] [place] [address] Care Teams Tetryl Nitrator Operator Relationship Specialty Start Date End Date Jackie Cardona NP PCP - General Family Medicine 10/23/22
--- OUTSIDE RECORDS SUMMARY | 2024-04-22 00:14 | XMS_ITS | Encounter Summary ---
Author Organization [facility] Address [address] [place] [address] Care Team Providers Care Estimator Jewelry Name Role Phone Jackie Cardona NP Primary Care Provider [phone] Encounter Details Date Type Department Care Team (Late st Contact Info) Description 04/20/2024 Orders Only [facility] [address] [place] [address] Scanning, Provider Social History Tobacco Use Types Packs/Day Years Used Date Smoking Tobacco: Never Smokeless Tobacco: Never AUDIT-C Answer Date Recorded Q1: How often [...] on file Legal Sex Female 1:39 PM DEWAXER Gender Identity Female 11/22/2022 10:27 AM CDT Sexual Orientation Straight 11/22/2022 10 :27 AM CDT documented as of this encounter Plan of Treatment Not on file documented as of this encounter Procedures Procedure Name Priority Date/Time Associated Diagnosis Comments SCAN - RADIOLOGY/IMAGING 04/20/2024 9:05 PM DEWAXER documented in this encounter Results * SCAN - RADIOLOGY/IMAGING (04/20/2024 9:05 PM DEWAXER) Anatomical Region Laterality Modality Other us Provider Scanning Final Result documented in this encounter Visit Diagnoses Not on filedocumented in this encounter Care Teams Estimator Jewelry Relationship Specialty Start Date End Date Jackie Cardona NP PCP - General Family Medicine 10/23/22 documented as of this encounter
--- OUTSIDE RECORDS SUMMARY | 2024-04-22 00:14 | XMS_ITS | Clinical Summary ---
Author Organization [facility] Address [address] [place] [phone] Phone Care Team Providers Care It Security Specialist Name Role Phone Unavailable Primary Care Provider [...] Encounters Date Type Department Care Team Description 04/15/2024 External Device Data STL ABSTRACTION Provider, Abstract 03/25/2024 External Device Data STL ABSTRACTION Provider, Abstract 03/19/2024 External Device Data STL ABSTRACTION Provider, Abstract 03/05/2024 12:59 PM PURIFICATION OPERATOR - 03/05/2024 11:59 PM PURIFICATION OPERATOR Hospital Encounter [facility] Thuy Perez [address] [place] [phone] Blane Mena MD Discharge Disposition: Home or Self Care 02/06/2024 2:00 PM PURIFICATION OPERATOR - 02/06/2024 11:59 PM PURIFICATION OPERATOR Hospital Encounter [facility] Thuy Perez [address] [place] [phone] Nida Turner MD Discharge Disposition: Home or [...] 88 08/24/2020 3:59 PM CDT Temperature 36.6 C (97.9 F) 08/24/2020 8:20 AM CDT Respiratory Rate 16 08/24/2020 8:20 AM CDT [...] UP PER FETUS Routine 03/05/2024 5:00 PM PURIFICATION OPERATOR History of prior with IUGR Chronic hypertension in US OB FOLLOW UP PER FETUS Routine 02/06/2024 2:36 PM PURIFICATION OPERATOR Chronic hypertension in History of delivery, currently from Last 3 Months Results * US OB FOLLOW UP PER FETUS (03/05/2024 5:00 PM PURIFICATION OPERATOR) Only the most recent of2 resultswithin the time period is included. Anatomical Region Laterality Modality Pelvis Ultrasound 03/05/2024 1:00 PM PURIFICATION OPERATOR Narrative 03/05/2024 1:39 PM PURIFICATION OPERATOR STL FOLLOW UP ----- Pat. Name: DESIREE ROSEN Study Date: 03/05/2024 1:00pm Pat. NO: [id number] Referring MD: CECILIA WOLFE MD Site: [facility] [employer] Picker: Nickie Barr RDMS : 1990 Age: 34 ----- INDICATION ----- Screening Follow-Up Chronic Hypertension (HTN) History of PTL/PTD in Previous , Currently Maternal Care for Low Transverse Scar from Previous Delivery (Previous ) CODING ----- Diagnoses Z3A.30: Weeks of gestation O34.211: Maternal care for low transverse scar from previous delivery O09.213: Supervision of with history of pre-term labor O10.013: Pre-existing essential hypertension complicating Z36.3: Encounter for screening for malformations Procedures 62429: Ultrasound, uterus, real time with image documentation, follow up, transabdominal approach per fetus HISTORY ----- OB History 3. Para 2 T1P1L2 MATERNAL ASSESSMENT ----- Physical Exam Initial weight 73 kg, 160 lb. Initial BMI 30.25 kg/m METHOD ----- Transabdominal ultrasound examination ----- Johnson [...] d Assigned ABRAHAM: 05/14/2024 BIOMETRY ----- BPD 71.5 mm 28w 5d 8% Hadlock OFD 94.9 mm 30w 4d 67% Lisa HC 267.1 mm 29w 1d 4% Hadlock Cerebellum tr 34.8 mm 30w 4d 47% Torres AC 251.0 mm 29w 2d 25% Hadlock Femur 56.5 mm 29w 5d 26% Hadlock HC / AC 1.06 38% Nicolaides Weight Calculation: EFW 1,380 g 29w 0d 19% Hadlock EFW (lb,oz) 3 lb 1 oz EFW by Hadlock ([id number]) Head / Face / Neck Biometry: Java Developer Consultant 3.3 mm CM 11.1 mm >99% Nicolaides Extremities / Bony Struc Biometry: FL / [...] Head / Neck Cranium. Lateral ventricles. Choroid plexus. Midline falx. Cavum septi pellucidi. Cerebellum. Cisterna magna. Heart / Thorax 4-chamber view. RVOT view. LVOT view. Diaphragm. Abdomen Stomach. Kidneys. Bladder. GROWTH OVERVIEW ----- Exam date GA BPD (mm) HC (mm) AC (mm) FL (mm) HL (mm) EFW (g) 01/09/2024 22w 0d 50.8 24% 192.0 18% 168.5 37% 36.1 22% 34.2 37% 439 27% 02/06/2024 26w 0d 61.5 12% 236.0 16% 215.1 41% 46.7 23% 848 29% 03/05/2024 30w 0d 71.5 8% 267.1 4% 251.0 25% 56.5 26% 1,380 19% COMMENT ----- Patient's name and date of were verified by the tap dancer prior to the exam IMPRESSION ----- Viable [...] Pat. Name:Micheal ROSEN Date:03/05/2024 1:00pm Pat. NO: [id number] MD:CECILIA WOLFE [facility] RD[facility] :1990Age:34 ----- INDICATION ----- Screening Follow-Up Chronic Hypertension (HTN) History of PTL/PTD in Previous , Currently Maternal Care for Low Transverse Scar from Previous Delivery (Previous ) CODING ----- Diagnoses Z3A.30: Weeks of gestation O34.211: Maternal care for low transverse scarfrom previous delivery O09.213: Supervision of with history ofpre-term labor O10.013: Pre-existing essential hypertensioncomplicating Z36.3: [facility] 18430: Ultrasound, uterus, real time withimage documentation, follow up, transabdominal approach per fetus HISTORY ----- OB History 3. Para 2 T1P1L2 MATERNAL ASSESSMENT ----- Physical Exam Initial weight 73 kg, 160 lb. Initial BMI 30.25kg/m METHOD ----- Transabdominal ultrasound examination ----- Johnson . Number of fetuses: 1 DATING ----- GA by prior [id number] w + 0 d ABRAHAM by prior [...] Hadlock Cerebellum tr 34.8 mm 30w 4d47% Brian AC 251.0 mm 29w 2d25% Hadlock Femur 56.5 mm 29w 5d26% Hadlock HC / AC 1.06 38%Nicolaides Weight Calculation: EFW 1,380 g 29w 0d19% Hadlock EFW (lb,oz) 3 lb 1 oz EFW by Hadlock ([id number]) Head / Face / Neck Biometry: Java Developer Consultant 3.3 mm CM 11.1 mm >99%Nicolaides Extremities [...] and date of were verified by the tap dancer prior tothe exam IMPRESSION ----- Viable at 30 weeks gestation complicated by chronic hypertensionand previous Cephalic presentation The biometry is consistent with low normal growth Estimated weight at the 19th percentile with abdominal circumferenceat the 25th percentile No structural malformations identified within the limitations of moiseste ultrasound Amniotic fluid volume is normal Posterior placenta with normal placental cord insertion appreciated;placenta is not low-lying Recommendations: -Recommend a follow-up ultrasound to assess growth in 4 weeks -Recommend twice-weekly modified biophysical profile starting at 32 weeksgestation if patient is on medications to control her high blood pressure us Blane Mena MD ORDERABLES Final Re sult from Last 3 Months Insurance [employer] BLUE ACCESS/TRUE BLUE PPO Advance Directives For more information, please contact: [phone] * Full Code (Latest Code Status on [...]
--- OUTSIDE RECORDS SUMMARY | 2024-04-22 00:14 | XMS_ITS | Encounter Summary ---
Author Organization [facility] Address [address] [place] [address] Care Team Providers Care Circus Performer Name Role Phone Unavailable Primary Care Provider Unavailabl e Encounter Details Date Type Department Care Team (Late st Contact Info) Description 06/07/2020 Abstract [facility] Maternal and Medicine - Medical [place] [facility] [address] [place] [address] Kathi Coughlin MD [address] [place] [address] Social History Tobacco Use Types [...]
--- OUTSIDE RECORDS SUMMARY | 2024-04-22 00:14 | XMS_ITS | Clinical Summary ---
Author Organization [facility] [address] Address [address] [place] [address] Care Team Providers Care Blueprint Engineer Name Role Phone Brendan Jackie [employer] Primary Care Provider [phone] Allergies Active Allergy Reactions Criticality Noted Date [...] gallbladder 08/03/2015 Overview (05/31/2016): Stones in gallbladder Encounters Date Type Department Care Team Description 04/20/2024 Orders Only [facility] Health Information Management [address] [place] [address] Scanning, Provider 03/31/2024 Orders Only [facility] Health Information Management [address] [place] [address] Scanning, Provider from Last 3 Months Immunizations Immunization Administration Dates Next Due Influenza, [...] on file Legal Sex Female 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 Gender Identity Female 11/22/2022 10:27 AM CDT [...] Comments SCAN - RADIOLOGY/IMAGING 04/20/2024 9:05 PM MEDICAL TRANSCRIPTIONIST SCAN - RADIOLOGY/IMAGING 03/31/2024 9:04 PM MEDICAL TRANSCRIPTIONIST from Last 3 Months Results * SCAN - RADIOLOGY/IMAGING (04/20/2024 9:05 PM MEDICAL TRANSCRIPTIONIST) Anatomical Region Laterality Modality Other us Provider Scanning Final Result * SCAN - RADIOLOGY/IMAGING (03/31/2024 9:04 PM MEDICAL TRANSCRIPTIONIST) Anatomical Region Laterality Modality Other us Provider Scanning Final Result from Last 3 Months Insurance [employer] PRF PPO [place] Care Teams Blueprint Engineer Relationship Specialty Start Date End Date Jackie Cardona NP PCP - General Family Medicine 10/23/22
[2024-04-22 05:55] LABS: Basophils Absolute Auto 0.1 K/mm3 (0.0-0.1); Basophils Percent Auto 0.6 % (0.2-1.2); Eosinophils Absolute Auto 0.1 K/mm3 (0-0.3); Eosinophils Percent Auto 0.9 % (0-4.4); Hematocrit 34.4 % (37.0-47.0); Hemoglobin 10.9 g/dL (12.0-15.0); Immature Granulocyte Absolute 0.12 K/mm3 (0.00-0.031); Immature Granulocyte Percent A 1.2 % (0-0.5); Lymphocytes Absolute Auto 1.51 K/mm3 (0.9-3.2); Mean Corpuscular HGB Conc 31.7 g/dl (32-36); Mean Corpuscular Hemoglobin 24.3 pg (26-34); Mean Corpuscular Volume 76.6 fl (80-100); Mean Platelet Volume 10.9 fl (7.4-10.4); Monocytes Absolute Auto 0.6 K/mm3 (0.1-0.6); Monocytes Percent Auto 5.8 % (2.6-8.5); Neutrophils Absolute Auto 7.7 K/mm3 (1.3-6.7); Neutrophils Percent Auto 76.5 % (45.5-73.1); Platelet Count Result 265 k/mm3 (150-375); Red Blood Count 4.49 M/mm3 (4.2-5.4); Red Cell Distribution Width 15.2 % (11.5-14.5); White Blood Count 10.1 K/mm3 (4.5-10.0)
[2024-04-22] MEDS: LACTATED RINGERS 1,000 ML 125 ML IV CONT (05:58)
[2024-04-22] MEDS: ACETAMINOPHEN 500 MG TABLET 1000 MG PO (05:59)
--- NOTE | 2024-04-22 06:10 | LDADM ---
This patient, Roxana Lares, was admitted to Labor/Delivery/Recovery 119 on 04/22/24 at 05:26. Plans for labor, pain management and were discussed with patient. Patient/family oriented to hospital policies and general routines including ID bracelet, bed and alarms, visiting hours, pain management, procedures, bathroom and other care routines, personal items, smoking policy, room service/diet and guest tray routines, security routines, and visiting hours. Patient/Family are encouraged to report perceived risks to care and to ask questions if they do not understand what they are told or what they should do. See OBIX for further documentation.
[2024-04-22 06:13] LABS: Alanine Aminotransferase 19 U/L (6-35); Albumin Level 3.5 g/dL (3.5-5.1); Alkaline Phosphatase 410 U/L (38-126); Anion Gap 12 mmol/L (4-12); Aspartate Amino Transferase 21 U/L (14-36); Bilirubin,Total 0.4 mg/dL (0.2-1.3); Blood Urea Nitrogen 13 mg/dL (7-17); Calcium 9.6 mg/dL (8.4-10.2); Carbon Dioxide 18 mmol/L (22-30); Chloride 104 mmol/L (98-107); Estimated CRCL calculation 106 ml/min; Estimated Glomerular Filt Rate > 60; Glucose 92 mg/dL (65-110); Potassium 4.2 mmol/L (3.4-5.0); Sodium 134 mmol/L (137-145); Uric Acid 6.3 mg/dL (2.5-7.5)
[2024-04-22] MEDS: LABETALOL HCL 100 MG TABLET 300 MG PO (06:18)
[2024-04-22] MEDS: LABETALOL HCL INJ 100 MG/20 ML VIAL 40 MG IV PUSH ×2 (06:18→06:50)
[2024-04-22 06:40] LABS: Syphilis IgG/IgM Antibody Negative (Negative)
[2024-04-22 06:43] LABS: Hepatitis B Surface Antigen Negative (Negative)
[2024-04-22 06:47] LABS: HIV 1/2 Ab P24 Ag Result Negative (Negative)
--- NOTE | 2024-04-22 07:01 | WPDHPUPDATE1 ---
History and Physical Update Update Date/Time: 04/22/24 07:01 History and Physical has been reviewed, including an updated exam of the patient. There are NO changes in the patient's condition. Risks, benefits, and alternatives have been discussed and questions answered. Patient agrees to proceed with procedure.
--- NOTE | 2024-04-22 07:02 | P.HP_ITS ---
H&P: HPI History of Present Illness Date/Time: 04/22/24 07:02 Chief Complaint: IUGR Chronic hypertension Previous Request sterilization Narrative: The patient is a 34-year-old 3 para 2 admitted at 36 and 2 7th weeks for repeat section and bilateral tubal. The patient has been followed for chronic hypertension. The most recent ultrasound has shown infant was in the 5 percentile and a low amniotic fluid. It was recommended to proceed with delivery patient was admitted this morning for repeat section. The patient has decided she wants no further children and has also elected to proceed with bilateral salpingectomy. Risks of the procedure including the risks of the tubal ligation were reviewed. Patient is aware this is a permanent irreversible procedure. She was also aware of the failure rate with increased risk of ectopic . On admission the patient's blood pressures were quite elevated at 190/110's. The hypertension protocol was started as well as the patient given her morning labetalol 300mg. The patient is asymptomatic. labs is AB positive RPR negative, HIV negative, hepatitis-B surface antigen negative, group B strep not performed. Review of Systems Review of Systems: not repeated day of surgery; patient states no changes in status PMF Past Medical History Medical History (Updated 04/22/24 @ 07:08 by Yaa Peng MD) Chronic hypertension in Anxiety History of pre-eclampsia in prior , currently History of vaginal delivery x 1 2010 Complicated by preeclampsia and absent end-diastolic flow on Dopplers Surgical History Surgical History (Updated 04/22/24 @ 07:08 by Yaa Peng MD) H/O section Complicated by intrauterine growth restriction delivered at 30 weeks History of cholecystectomy 2016 Family History Family History Other Breast cancer Grandparent Diabetes mellitus Father Acute myocardial infarction Mother Hypertension Sibling Hypertension Social History Social History Smoking status: Never smoker Alcohol intake: never Substance use: never Do You Feel Safe in your Home?: Yes Lack of Transportation: No Lack of Food: Never True Current Housing: I Have Housing Concerned About Future Housing: No Difficulty Paying Gas/Electric Bills: No Difficulty Paying for Meds: No Currently Unemployed: No Education: Bachelor's Degree Difficulty w/ Childcare or Family Care: No Spiritual care concerns: No Meds Home Medications and Allergies Home Medications ?Medication ?Instructions ?Recorded ?Confirmed ?Type blood pressure monitor #1 ea 04/16/20 04/16/24 Rx aspirin 81 mg capsule 81 mg PO DAILY 03/14/24 04/22/24 History vit no.95-ferrous 1 tablet PO DAILY 03/14/24 04/22/24 History fumarate 28 mg-folic acid 800 mcg tablet () cholecalciferol (vitamin D3) 250 10,000 unit PO DAILY 04/16/24 04/22/24 History mcg (10,000 unit) capsule labetalol 100 mg tablet 300 mg PO Q8H 04/16/24 04/22/24 History Allergies Allergy/AdvReac Type Severity Reaction Status Date / Time morphine AdvReac Itching Verified 04/22/24 06:10 Vital Signs Vital Signs - 24 hr 04/22/24 05:46 04/22/24 05:51 04/22/24 05:54 Pulse Rate 68 85 Blood Pressure 190/108 H 202/104 H 172/102 H Pulse Oximetry 98 98 04/22/24 05:56 04/22/24 05:58 04/22/24 06:02 Pulse Rate Blood Pressure 180/110 H Pulse Oximetry 98 98 04/22/24 06:03 04/22/24 06:08 04/22/24 06:13 Pulse Rate Blood Pressure Pulse Oximetry 97 98 98 04/22/24 06:16 04/22/24 06:18 04/22/24 06:23 Pulse Rate 75 73 Blood Pressure 197/104 H 191/114 H Pulse Oximetry 99 98 04/22/24 06:26 04/22/24 06:28 04/22/24 06:31 Pulse Rate 70 71 Blood Pressure 190/111 H 193/101 H Pulse Oximetry 98 04/22/24 06:33 04/22/24 06:36 04/22/24 06:38 Pulse Rate 72 Blood Pressure 193/103 H Pulse Oximetry 98 99 04/22/24 06:41 04/22/24 06:43 04/22/24 06:46 Pulse Rate 75 71 Blood Pressure 195/109 H 190/100 H Pulse Oximetry 99 04/22/24 06:50 04/22/24 06:50 04/22/24 06:51 Pulse Rate 81 73 Blood Pressure 176/106 H Pulse Oximetry 99 04/22/24 06:55 04/22/24 06:56 04/22/24 07:00 Pulse Rate 77 Blood Pressure 171/103 H Pulse Oximetry 97 100 04/22/24 07:01 Pulse Rate 83 Blood Pressure 186/116 H Pulse Oximetry Exam Const: General: comfortable Orientation/consciousness: patient oriented x3 Resp: Effort & Inspection: normal respiratory effort GI: GI Palp: Yes Soft to palpation, No Tenderness to palpation present (GI) a nd Yes Other GI palpation findings present (Fundal height 34cm) Auscultation: other ( heart tones category 1) : External Female Exam: normal external appearance Speculum Exam - Vagina: normal appearance of the vagina and normal vaginal discharge Speculum Exam - Cervix: normal appearance of the cervix Bimanual exam- vagina & uterus: consistency normal Bimanual Exam- Adnexa, other: normal adnexae and No adnexal tenderness Neuro: General: patient oriented x3 H&P: Results Labs Labs: Short CBC 04/22/24 Range/Units 05:47 WBC 10.1 H (4.5-10.0) K/mm3 Hgb 10.9 L (12.0-15.0) g/dL Hct 34.4 L (37.0-47.0) % Plt Count 265 (150-375) k/mm3 BMP 04/22/24 05:47 Sodium 134 L Potassium 4.2 Chloride 104 Carbon Dioxide 18 L BUN 13 D Creatinine 0.56 L Glucose 92 Calcium 9.6 Liver Function 04/22/24 Range/Units 05:47 Total Bilirubin 0.4 (0.2-1.3) mg/dL AST 21 (14-36) U/L ALT 19 (6-35) U/L Alkaline Phosphatase 410 H (38-126) U/L Albumin 3.5 (3.5-5.1) g/dL Assessment and Plan Assessment and plan (1) 36 weeks gestation of : Code(s): Z3A.36 - 36 weeks gestation of Status: Acute (2) IUGR (intrauterine growth restriction) affecting care of mother: Code(s): O36.5990 - Maternal care for other known or suspected poor growth, unspecified trimester, not applicable or unspecified Status: Acute Assessment and Plan: Current indication for delivery (3) Chronic hypertension in : Code(s): O10.919 - Unspecified pre-existing hypertension complicating , unspecified trimester Status: Acute Assessment and Plan: Continue hypertensive protocol (4) Encounter for sterilization: Code(s): Z30.2 - Encounter for sterilization Status: Acute Assessment and Plan: Plan to proceed with bilateral salpingectomy (5) H/O section: Code(s): Z98.891 - History of uterine scar from previous surgery Status: Acute Assessment and Plan: Proceed with repeat section
[2024-04-22] MEDS: FAMOTIDINE 20 MG/2 ML VIAL IV PUSH (07:05)
[2024-04-22] MEDS: ONDANSETRON INJ 4 MG/2 ML VIAL IV PUSH ×2 (07:05→13:38)
--- NOTE | 2024-04-22 07:10 | WPDANESEPPF ---
Anes - Initial Pre Proc Eval Procedure: Operation Date: 04/22/24 07:30 Proposed Procedures p Repeat Section with Tubal Ligation - Yaa Peng MD Date/Time: 04/22/24 07:10 Surgeon: Yaa Peng MD Pre Op Diagnosis: Repeat , Desire Sterilization Patient Data Age: 34 Gender: F Height: 1.55 m Weight: 66 kg Last Vital Signs Pulse 75 04/22/24 07:06 BP 182/97 H 04/22/24 07:06 Pulse Ox 99 04/22/24 07:05 Allergies Allergy/AdvReac Type Severity Reaction Status Date / Time morphine AdvReac Itching Verified 04/22/24 06:10 Home Medications ?Medication ?Instructions ?Recorded ?Confirmed ?Type blood pressure monitor #1 ea 04/16/20 04/16/24 Rx aspirin 81 mg capsule 81 mg PO DAILY 03/14/24 04/22/24 History vit no.95-ferrous 1 tablet PO DAILY 03/14/24 04/22/24 History fumarate 28 mg-folic acid 800 mcg tablet () cholecalciferol (vitamin D3) 250 10,000 unit PO DAILY 04/16/24 04/22/24 History mcg (10,000 unit) capsule labetalol 100 mg tablet 300 mg PO Q8H 04/16/24 04/22/24 History Laboratory Tests 04/22/24 04/22/24 05:47 05:47 WBC 10.1 H K/mm3 (4.5-10.0) RBC 4.49 M/mm3 (4.2-5.4) Hgb 10.9 L g/dL (12.0-15.0) Hct 34.4 L % (37.0-47.0) MCV 76.6 L fl (80-100) MCH 24.3 L pg (26-34) MCHC 31.7 L g/dl (32-36) RDW 15.2 H % (11.5-14.5) Plt Count 265 k/mm3 (150-375) MPV 10.9 H fl (7.4-10.4) Immature Gran % (Auto) 1.2 H % (0-0.5) Neut % (Auto) 76.5 H % (45.5-73.1) Lymph % (Auto) 15.0 L % (18.3-44.2) Moca % (Auto) 5.8 % (2.6-8.5) Eos % (Auto) 0.9 % (0-4.4) Baso % (Auto) 0.6 % (0.2-1.2) Lymph # (Auto) 1.51 K/mm3 (0.9-3.2) Moca # (Auto) 0.6 K/mm3 (0.1-0.6) Eos # (Auto) 0.1 K/mm3 (0-0.3) Baso # (Auto) 0.1 K/mm3 (0.0-0.1) Abs Immat Gran (auto) 0.12 H K/mm3 (0.00-0.031) Absolute Neuts (auto) 7.7 H K/mm3 (1.3-6.7) Absolute Nucleated RBC 0.000 K/mm3 (0.0-0.012) Nucleated RBC % 0.0 % (0.0-0.2) Sodium 134 L mmol/L (137-145) Potassium 4.2 mmol/L (3.4-5.0) Chloride 104 mmol/L (98-107) Carbon Dioxide 18 L mmol/L (22-30) Anion Gap 12 mmol/L (4-12) BUN 13 D mg/dL (7-17) Creatinine 0.56 L mg/dL (0.7-1.0) Estim Creat Clear Calc 106 ml/min Estimated GFR > 60 (59 - ) Glucose 92 mg/dL (65-110) Uric Acid Cancelled 6.3 mg/dL (2.5-7.5) Calcium 9.6 mg/dL (8.4-10.2) Total Bilirubin 0.4 mg/dL (0.2-1.3) AST 21 U/L (14-36) ALT 19 U/L (6-35) Alkaline Phosphatase 410 H U/L (38-126) Total Protein 7.0 g/dL (6.3-8.2) Albumin 3.5 g/dL (3.5-5.1) Syphilis IgG/IgM Ab Negative (Negative) RPR Titer Cancelled RPR Cancelled RPR Titer Add Testing Cancelled T.pallidum Ab (FTA-ABS) Cancelled T.pall Ab(FTA-ABS)Reflex Cancelled Hep Bs Antigen Negative (Negative) HIV 1&2 Ab/P24 Ag 4thGn Negative (Negative) Blood Type AB Positive Antibody Screen Negative Patient hx anesthesia problems: none Family hx anesthesia problems: none Results Review: All pre-operative results and documents have been reviewed as part of the pre-operative evaluation. COUNT INCLUDES THE [facility] Past Medical History Medical History (Updated 04/22/24 @ 07:08 by aYa Peng MD) Chronic hypertension in Anxiety History of pre-eclampsia in prior , currently History of vaginal delivery x 1 2010 Complicated by preeclampsia and absent end-diastolic flow on Dopplers Surgical History Surgical History (Updated 04/22/24 @ 07:08 by Yaa Peng MD) H/O section Complicated by intrauterine growth restriction delivered at 30 weeks History of cholecystectomy 2015 Family History Family History Other Breast cancer Grandparent Diabetes mellitus Father Acute myocardial infarction Mother Hypertension Sibling Hypertension Social History Social History Smoking status: Never smoker Alcohol intake: never Substance use: never Do You Feel Safe in your Home?: Yes Lack of Transportation: No Lack of Food: Never True Current Housing: I Have Housing Concerned About Future Housing: No Difficulty Paying Gas/Electric Bills: No Difficulty Paying for Meds: No Currently Unemployed: No Education: Bachelor's Degree Difficulty w/ Childcare or Family Care: No Spiritual care concerns: No Anes - Eval Final PreProcedure Day of Procedure 04/22/24 07:10 Patient weight: overweight Heart: regular rate and rhythm Lungs: clear to auscultation and normal air movement Airway: Mallampati scale class II Neurological: alert and oriented Last oral intake: >/= 8 hours ASA classification: III Emergent: no Anesthetic plan: proceed Anesthesia type and monitoring: regional spinal and standard monitoring Results Review: All pre-operative results and documents have been reviewed as part of the pre-operative evaluation. Informed Consent: The patient's anesthetic plan and its attendant risks and benefits were discussed with the patient/family/POA. Questions were solicited and answers provided to the satisfaction of the patient/family/POA.
[2024-04-22] MEDS: ceFAZolin 2 GM/D5W 50 ML 2 GM/50 ML BAG IVPB (07:14)
--- NOTE | 2024-04-22 08:14 | P.PCNOB_ITS ---
OB - Delivery Note Procedure Delivery date: 04/22/24 Pre-op diagnosis: Chronic Hypertension, Previous Delivery and Other (possible superimposed preeclampsia; requests sterilization; 36 and 4 7th weeks) Post-op Diagnosis: Same Induction method: None Delivery monitor: External FHT and External Uterine Procedure Performed: Repeat Secondary branch: low cervical, transverse Surgeon: Yaa Peng MD Anesthesia type: Spinal Description of Procedure/Findings: The patient was taken to the operating room and placed under anesthesia in the dorsal supine position with a leftward tilt. The patient is prepped and draped in the usual sterile fashion. The skin incision was made with a scalpel through the prior Pfannenstiel incision and carried down to the underlying layer of fascia. The fascia is nicked in the midline with a scalpel and extended late rally using Garzon scissors. [facility] was used to tent the fascia which was then dissected off using sharp and blunt dissection. The rectus muscles were in the midline and the peritoneum tented and entered with Metzenbaum scissors. The incision was extended with blunt traction and the bladder blade placed. The vesicouterine peritoneum was noted to be very low in the incision so was left in place. The lower uterine segment was incised in a transverse fashion with the scalpel and extended with blunt traction. The membranes are ruptured with clear fluid. The infant was delivered through the incision while guiding the vertex and the surgical assistant certified applying fundal pressure. There is a cord around the neck and feet. The delayed cord clamping was performed and the infant then handed to the waiting OB team after the cord was clamped and cut. The placenta was removed with manual traction after cord gases and cord blood were drawn. The uterus was exteriorized and cleared of all clots and debris. The uterus remained boggy and the Pitocin was increased. The uterus remained boggy after that and Hemabate was given. Minimal bleeding was occurring but the uterus finally became firm. Uterine incision was closed using 0 Monocryl in a running locked fashion. Same suture was used to imbricate. Two additional [id number] sutures are required in the right angle for hemostasis. Attention was then turned to the removal of the tubes. The right tube was grasped with a Agata and crossclamped with a Z clamp. The pedicle is Franco ligated and free tied with an 0 Vicryl. The identical procedure was performed on the left side. The pedicles were both hemostatic. The incision was again inspected and noted to be hemostatic. The uterus was returned to the abdomen af ter irrigating the cul-de-sac. The incision was inspected 1 additional time and noted to be hemostatic. The fascia was closed using 0 Vicryl in a running fashion. Subcutaneous tissues were irrigated and made hemostatic using Bovie cautery. Skin incision was closed using 4-0 Vicryl in a subcuticular fashion. Dermaflex was placed over the incision. The patient was taken to recovery in stable condition. Estimated Blood Loss: 240 Drains: Yes (Leiva catheter) Pathology: Yes (Placenta and bilateral tubes) Complications: No immediate complications Condition: Stable Disposition: Floor Baby Date of : 04/22/24 Gestational Age by Date: 36 (36 and 06/01) gender: Female Weight (pounds): 4 Weight (ounces): 7 presentation: vertex position: Right Occiput Anterior Placenta delivery description: Spontaneous Cord Vessel Description: 3 Vessels, Delayed Cord Clamping, Around Body (And around the shoulder) and Around Extremity Narrative: Apgars have not been calculated by the staff at this time
--- NOTE | 2024-04-22 08:21 | P.DS_ITS ---
DS: Admitting Diagnosis Admitting Diagnosis Intrauterine at 36 and 4/7 Chronic hypertension with likely superimposed preeclampsia Intrauterine growth restriction Previous section Requests sterilization DS: Discharge Diagnosis Discharge Diagnosis (1) IUGR (intrauterine growth restriction) affecting care of mother: Code(s): O36.5990 - Maternal care for other known or suspected poor growth, unspecified trimester, not applicable or unspecified Status: Acute (2) H/O section: Code(s): Z98.891 - History of uterine scar from previous surgery Status: Acute (3) 36 weeks gestation of : Code(s): Z3A.36 - 36 weeks gestation of Status: Acute (4) Encounter for sterilization: Code(s): Z30.2 - Encounter for sterilization Status: Acute (5) Chronic hypertension with superimposed preeclampsia: Code(s): O11.9 - Pre-existing hypertension with pre-eclampsia, unspecified trimester Status: Acute Assessment and Plan: Likely diagnosis with severe blood pressure ranges OB - DS: Summary OB Procedures : NST and Ultrasound OB Procedures Intrapartum: low cervical, transverse and Tubal ligation (Bilateral salpingectomy) OB Procedures: : None Peripartum Data Infant Delivery Method: Section Procedures: Procedures Operation Date: 04/22/24 07:30 <No data on this case meets the specified criteria> complications: none Status at Discharge Functional status at discharge: independent ambulation Overall status at discharge: patient is progressing back to baseline Time Spent with Patient Time attestation: Total time spent providing and/or coordinating discharge services: DS: Data Data Completed and Pending Labs on day of discharge: Labs from last 24 hours 04/22/24 04/22/24 05:47 05:47 WBC 10.1 H RBC 4.49 Hgb 10.9 L Hct 34.4 L MCV 76.6 L MCH 24.3 L MCHC 31.7 L RDW 15.2 H Plt Count 265 MPV 10.9 H Immature Gran % (Auto) 1.2 H Neut % (Auto) 76.5 H Lymph % (Auto) 15.0 L Edwards % (Auto) 5.8 Eos % (Auto) 0.9 Baso % (Auto) 0.6 Lymph # (Auto) 1.51 Edwards # (Auto) 0.6 Eos # (Auto) 0.1 Baso # (Auto) 0.1 Abs Immat Gran (auto) 0.12 H Absolute Neuts (auto) 7.7 H Absolute Nucleated RBC 0.000 Nucleated RBC % 0.0 Sodium 134 L Potassium 4.2 Chloride 104 Carbon Dioxide 18 L Anion Gap 12 BUN 13 D Creatinine 0.56 L Estim Creat Clear Calc 106 Estimated GFR > 60 Glucose 92 Uric Acid 6.3 Cancelled Calcium 9.6 Total Bilirubin 0.4 AST 21 ALT 19 Alkaline Phosphatase 410 H Total Protein 7.0 Albumin 3.5 Syphilis IgG/IgM Ab Negative RPR Titer Cancelled RPR Cancelled RPR Titer Add Testing Cancelled T.pallidum Ab (FTA-ABS) Cancelled T.pall Ab(FTA-ABS)Reflex Cancelled Hep Bs Antigen Negative HIV 1&2 Ab/P24 Ag 4thGn Negative Blood Type AB Positive Antibody Screen Negative Discharge Plan Discharge Attending physician on discharge: Yaa Peng Anticipated Discharge Date/Time: 04/25/24 08:23 Patient Disposition: Home, Self-Care Activity: may shower, may drive after 2 weeks and pelvic rest Diet: regular Wound Care Instructions: incision open to air Patient Instructions: Antibiotic Form Patient Language: Turkish Stand Alone Forms: General Discharge Information Follow-up/Referrals: Yaa Peng MD [Physician] - 1 Week (And 6 week) Discharge Medications: No Action PNV cmb#95-ferrous fumarate-FA [] 28 mg iron- 800 mcg tablet 1 tablet PO DAILY aspirin 81 mg capsule 81 mg PO DAILY (DME) blood pressure monitor Kit See Rx Instructions .ROUTE .MEDSUPPLY Qty: 1 0RF Rx Instructions: As directed cholecalciferol (vitamin D3) 250 mcg (10,000 unit) capsule 10,000 unit PO DAILY labetalol 100 mg Tablet 300 mg PO Q8H Date of admission: 04/22/24 05:26 Primary Care Provider: Brendan,Jackie Velazquez Admitting Provider: Yaa Peng Attending physician on admission: Yaa Peng Condition: Stable
[2024-04-22] MEDS: MAGNESIUM SULF 4 GM/WATER100ML 4 GM/100 ML BAG IVPB (08:31)
[2024-04-22] MEDS: LOPERAMIDE HCL 2 MG CAPSULE PO (08:52)
[2024-04-22] MEDS: MAGNESIUM SULF 20GM/WATER500ML 500 ML 50 MG IV CONT ×2 (09:02→18:55)
--- NOTE | 2024-04-22 10:48 | OBPPTRN ---
Patient transferred to post room # 280 via stretcher Support person present. Oriented to unit, room, information board, rooming in, admission packet and security measures. Patient verbalizes understanding.
[2024-04-22] MEDS: KETOROLAC 15 MG/ML VIAL (*BKC) IV PUSH ×2 (13:38→19:06)
--- NOTE | 2024-04-22 14:00 | PC.NURSE ---
Patient has been nauseous and vomiting. Baby is in level 2 and mom has been advised to initiate pumping. She has her own breast pump that she is familiar with and states that she will pump when she is feeling better. Primary RN will follow up with mom and she knows to call out if she needs any assistance with her pump.
[2024-04-22] MEDS: METOCLOPRAMIDE HCL INJ 10 MG/2 ML VIAL IV PUSH (14:57)
[2024-04-22] MEDS: ACETAMINOPHEN 325 MG TABLET 650 MG PO (17:17)
[2024-04-22] MEDS: DEXTROSE 5%/0.45% SOD CHL 1,000 ML 125 ML IV CONT (19:05)
[2024-04-23] VITALS (8 sets, daily range): BP systolic 137–153; BP diastolic 86–103; PULSE 71–86; RESP 16–18; TEMP 36–37.1; O2SAT 95–98
--- NOTE | 2024-04-23 01:00 | PC.NURSE ---
0100- initiated pumping with pt due to separation from transferred to [facility]. Education given on frequency of pumping, correct flange sizing (pt using 24), storage of breast milk and cleaning pump parts. pt verbalized understanding and declined any questions at this time.
[2024-04-23] MEDS: ACETAMINOPHEN 325 MG TABLET 650 MG PO ×4 (01:50→21:00)
[2024-04-23] MEDS: KETOROLAC 15 MG/ML VIAL (*BKC) IV PUSH ×2 (01:50→07:59)
[2024-04-23] MEDS: LIDOCAINE 5% PATCH 1 PATCH TRANSDERM (04:50)
[2024-04-23 06:01] LABS: Basophils Absolute Auto 0.1 K/mm3 (0.0-0.1); Basophils Percent Auto 0.5 % (0.2-1.2); Eosinophils Absolute Auto 0.1 K/mm3 (0-0.3); Eosinophils Percent Auto 0.9 % (0-4.4); Hematocrit 32.3 % (37.0-47.0); Hemoglobin 9.7 g/dL (12.0-15.0); Immature Granulocyte Absolute 0.07 K/mm3 (0.00-0.031); Immature Granulocyte Percent A 0.7 % (0-0.5); Lymphocytes Absolute Auto 1.47 K/mm3 (0.9-3.2); Lymphocytes Percent Auto 14.3 % (18.3-44.2); Mean Corpuscular Hemoglobin 24.1 pg (26-34); Mean Corpuscular Volume 80.1 fl (80-100); Mean Platelet Volume 11.4 fl (7.4-10.4); Monocytes Absolute Auto 0.5 K/mm3 (0.1-0.6); Neutrophils Absolute Auto 8.1 K/mm3 (1.3-6.7); Neutrophils Percent Auto 78.6 % (45.5-73.1); Platelet Count Result 208 k/mm3 (150-375); Red Blood Count 4.03 M/mm3 (4.2-5.4); Red Cell Distribution Width 15.6 % (11.5-14.5); White Blood Count 10.3 K/mm3 (4.5-10.0)
[2024-04-23] MEDS: MAGNESIUM SULF 20GM/WATER500ML 500 ML 50 MG IV CONT (07:12)
--- NOTE | 2024-04-23 07:43 | PM.OBPNVD ---
OB - PN: Subj Subjective Date/time seen: 04/23/24 07:43 Patient comments: no complaints and pain well controlled baby status: NICU (transferred but doing very well) OB - PN: Obj Data Labs 04/23/24 04:55 04/22/24 05:47 Labs: Laboratory Results - last 24 hr 04/23/24 04:55 WBC 10.3 H RBC 4.03 L Hgb 9.7 L Hct 32.3 L MCV 80.1 MCH 24.1 L MCHC 30.0 L RDW 15.6 H Plt Count 208 MPV 11.4 H Immature Gran % (Auto) 0.7 H Neut % (Auto) 78.6 H Lymph % (Auto) 14.3 L Hamblen % (Auto) 5.0 Eos % (Auto) 0.9 Baso % (Auto) 0.5 Lymph # (Auto) 1.47 Hamblen # (Auto) 0.5 Eos # (Auto) 0.1 Baso # (Auto) 0.1 Abs Immat Gran (auto) 0.07 H Absolute Neuts (auto) 8.1 H Absolute Nucleated RBC 0.000 Nucleated RBC % 0.0 OB - PN A/P Assessment and Plan (1) Chronic hypertension with superimposed preeclampsia: Code(s): O11.9 - Pre-existing hypertension with pre-eclampsia, unspecified trimester Status: Acute Assessment and Plan: Magnesium dc now. BP good. Restarting Labetalol 100 mg BID this am. Starting diuresis. Plan day: 1 Plan: routine care Comments: Plan dc tomorrow if able Time Spent With Patient Time: Total time spent is greater than 50% in coordination of care (as documented) at patient's floor/unit and/or counseling patient: Exam Narrative: inc c/d/i : Bimanual exam- vagina & uterus: other (Uterus firm, nt @U)
[2024-04-23] MEDS: POLYSACCHARIDE IRON COMPLEX 150 MG CAPSULE PO ×2 (07:59→17:16)
[2024-04-23] MEDS: SIMETHICONE 80 MG TAB.CHEW PO ×3 (07:59→17:16)
[2024-04-23] MEDS: DOCUSATE SODIUM 100 MG CAPSULE PO ×2 (09:28→17:17)
[2024-04-23] MEDS: MULTIVIT/MIN/PREN/FOL AC/IRON TABLET 1 TAB PO (09:28)
[2024-04-23] MEDS: LABETALOL HCL 100 MG TABLET PO ×2 (09:28→17:16)
--- NOTE | 2024-04-23 11:55 | PC.NURSE ---
Met with patient to see how pumping is going. Baby was transferred to the NICU and mom is using her Motif pump. Encouraged consistency and pumping at least 8 times a day, once at night. Mom is experienced with pumping as her last baby was born at 30 weeks and she pumped at that time. She does hope to latch baby when she is able to. Mom doesn't have any questions or concerns regarding pumping at this time. We pulled 4mls of colostrum up in syringes and refrigerated. Mom hopes to be discharged tomorrow. Reported to primary RN.
[2024-04-23] MEDS: IBUPROFEN 600 MG TABLET PO ×2 (14:16→21:00)
--- NOTE | 2024-04-23 15:19 | WPDANLDPN2 ---
Anes-Prog Note L&D Date/Time: 04/23/24 15:19 Comfortable throughout: section Neuraxial method: spinal Epidural/Spinal procedure site: clean & non-tender Neuro status: Neuro function grossly intact. Cardiovascular status: normal Respiratory status: normal Airway patency: baseline Mental status: baseline Post-Op hydration status: normal Vital Signs: Last Vital Signs Temp 36.8 C 04/23/24 12:04 Pulse 79 04/23/24 12:04 Resp 16 04/23/24 12:04 BP 137/92 H 04/23/24 12:04 Pulse Ox 98 04/23/24 12:04 O2 Del Method Room Air 04/23/24 07:15 Pain score (VAS): 3 I/O: Intake & Output 04/22/24 04/23/24 04/23/24 23:59 07:59 15:59 Intake Total 944.2 1050 1380 Output Total 2250 3250 1200 Balance -1305.8 -2200 180 Post-procedural complaints: none Patient feedback: Patient satisfied with anesthetic care.
--- NOTE | 2024-04-23 15:19 | WPDANLDNPN2 ---
Anes-Prog Note L&D-Neuraxial Date/Time: 04/23/24 15:19 Neuraxial medications: intrathecal PF morphine Opiod-related complaints: none Patient feedback: Patient satisfied with post-operative pain management.
--- NOTE | 2024-04-23 15:57 | PC.NURSE ---
On 04/23/24, the [facility] foreign exchange student coordinator, Chantell, provided care and completed [employer] documentation on this patient. I have reviewed the student's documentation and agree with the findings.
[2024-04-24] VITALS (16 sets, daily range): BP systolic 122–184; BP diastolic 77–116; PULSE 64–100; RESP 16; TEMP 36.4–36.6; O2SAT 96–98
[2024-04-24] MEDS: ACETAMINOPHEN 325 MG TABLET 650 MG PO ×3 (03:40→17:10)
[2024-04-24] MEDS: IBUPROFEN 600 MG TABLET PO ×3 (03:40→17:10)
[2024-04-24] MEDS: LABETALOL HCL 100 MG TABLET PO ×2 (04:02→21:03)
--- NOTE | 2024-04-24 08:19 | PM.OBPNVD ---
OB - PN: Subj Subjective Date/time seen: 04/24/24 08:19 Patient comments: no complaints and pain well controlled baby status: doing well, bottle feeding well and NICU OB - PN: Obj Data Labs 04/23/24 04:55 04/22/24 05:47 OB - PN A/P Assessment and Plan (1) Chronic hypertension with superimposed preeclampsia: Code(s): O11.9 - Pre-existing hypertension with pre-eclampsia, unspecified trimester Status: Acute Assessment and Plan: s/p magnesium x 24 hours BP's increasing over last 12 hours Increase labetalol to 200mg Bid and adjust if needed Plan pass to [facility] to see infant Plan day: 2 Plan: routine care Time Spent With Patient Time: Total time spent is greater than 50% in coordination of care (as documented) at patient's floor/unit and/or counseling patient: Exam Narrative: inc c/d/i : Bimanual exam- vagina & uterus: other (Uterus firm, nt @U)
[2024-04-24] MEDS: SIMETHICONE 80 MG TAB.CHEW PO ×2 (08:20→17:10)
[2024-04-24] MEDS: POLYSACCHARIDE IRON COMPLEX 150 MG CAPSULE PO ×2 (08:20→17:10)
[2024-04-24] MEDS: MULTIVIT/MIN/PREN/FOL AC/IRON TABLET 1 TAB PO (08:20)
[2024-04-24] MEDS: DOCUSATE SODIUM 100 MG CAPSULE PO ×2 (08:20→17:10)
[2024-04-24] MEDS: LABETALOL HCL 100 MG TABLET 200 MG PO ×2 (08:20→21:03)
--- NOTE | 2024-04-24 11:47 | PC.NURSE ---
Introductions were made, then consulted with patient to assess needs related to . Per mother she is using her breast pump, she is not having any pain and right now she has no questions, baby is currently at [facility] in the NICU. Resources provided for inpatient and outpatient services with the feeding sheet, mom/baby guide and name written on the communication board. Mother voiced understanding of information and will call if there is a request for assistance. Reported to the Primary RN.
--- NOTE | 2024-04-24 12:30 | PC.NURSE ---
This patient left on a therapeutic leave pass to visit in NICU.
--- NOTE | 2024-04-24 16:55 | PC.NURSE ---
Patient returned from visiting infant in NICU at [facility].
[2024-04-24] MEDS: NIFEdipine 10 MG CAPSULE PO (18:07)
[2024-04-25 00:45] VITALS: BP 159/96; PULSE 76; RESP 16; TEMP 36.6; O2SAT 96
[2024-04-25] MEDS: IBUPROFEN 600 MG TABLET PO (05:14)
[2024-04-25] MEDS: ACETAMINOPHEN 325 MG TABLET 650 MG PO (05:14)
[2024-04-25 05:15] VITALS: BP 148/98; PULSE 73; RESP 16; TEMP 36.9; O2SAT 98
[2024-04-25 09:00] VITALS: BP 159/118; PULSE 76; RESP 16; TEMP 36.6; O2SAT 100
[2024-04-25] MEDS: DOCUSATE SODIUM 100 MG CAPSULE PO (09:00)
[2024-04-25] MEDS: SIMETHICONE 80 MG TAB.CHEW PO (09:00)
[2024-04-25] MEDS: MULTIVIT/MIN/PREN/FOL AC/IRON TABLET 1 TAB PO (09:00)
[2024-04-25 09:02] VITALS: PULSE 76
[2024-04-25] MEDS: LABETALOL HCL 100 MG TABLET 200 MG PO (09:02)
[2024-04-25 09:30] VITALS: BP 164/101
--- NOTE | 2024-04-25 11:00 | PM.OBPNVD ---
OB - PN: Subj Subjective Date/time seen: 04/25/24 11:00 Narrative: Pain OK. Tolerating diet. Would like to go home. OB - PN: Obj Data Labs 04/23/24 04:55 04/22/24 05:47 OB - PN A/P Plan Comments: A: POD#3, doing well. HTN with labile bp readings, improving. P: Home to f/u incision check in 1-2 weeks. She will call me on Saturday with bp readings. Exam Narrative: AVSS ABD soft, nontender, fundus firm. Incision c/d/i. EXT nontender
--- NOTE | 2024-04-25 11:10 | PC.NURSE ---
Consulted with mother concerning needs and she shared that she is using her breast pump every 3-4 hours and is doing so without pain. Reinforced understanding of milk production, transition of milk, signs of adequate intake, transition of stool, prevention/relief of engorgement, plugged ducts, mastitis, responsive watching for feeding cues, the different methods of stimulating to breastfeed 1-3 hours after the start of the last feeding, community resources, and when to call a provider using the resource of the feeding sheet along with the mom and baby guide. Mother voiced understanding of the information shared, is confident to continue effectively her at home, when to call for assistance, denies any additional assistance or education at this time. Reported to the Primary RN.
== END 2024-04-25 12:25 | disposition home or self-care (01) | DRG 784 ==
LOC: ANHLDR 08:23 → ANHOB2 04-28 08:43
PROVIDERS: Admitting Provider Obstetrics & Gynecology Gynecology; PCP Nurse Practitioner; Visit Provider Obstetrics & Gynecology
PROC: 10D00Z1 Extraction of Products of Conception, Low, Open Approach (ICD-10-PCS; CPT 59514; principal; 2024-04-22 07:30)
DX: O34.219 Maternal care for unspecified type scar from previous cesarean delivery (principal); O10.92 Unspecified pre-existing hypertension complicating childbirth; O11.4 Pre-existing hypertension with pre-eclampsia, complicating childbirth; Z30.2 Encounter for sterilization; O36.5930 Maternal care for other known or suspected poor fetal growth, third trimester, not applicable or unspecified; Z3A.36 36 weeks gestation of pregnancy; Z37.0 Single live birth; Z90.49 Acquired absence of other specified parts of digestive tract; O69.82X0 Labor and delivery complicated by other cord entanglement, without compression, not applicable or unspecified
CPT/HCPCS: 36415; 80053; 84550; 85025; 86593; 86703; 86850; 86900; 86901; 87340; 88302; 88307; A9270; G0432; J0690; J1885; J2274; J2405; J2590; J2765; J3475; J7120